=== PATIENT | female | born 1945 | race Caucasian/White ===

== ENCOUNTER 2019-11-13 09:37 | Emergency (ER) | payer MEDICARE, OTHER, SELFPAY ==
[2019-11-13 09:52] VITALS: BP 197/108; PULSE 71; RESP 18; TEMP 36.7; O2SAT 100
--- NOTE | 2019-11-13 10:02 | ED.ABDPAIN ---
HPI - Abdominal Pain General Chief Complaint: Upper Respiratory Infection Stated Complaint: Congestion History of Present Illness HPI narrative: This is a 74-year-old female comes in complaining of nausea and inability to hold anything down including her medicines.Patient Lupe here she comes in complaining nauseousness has not eaten and when she does she has dry heaves. Patient denies fever, weakness just not feeling well and coughing up clear sputum Related Data Home Medications Medication Instructions Recorded Confirmed amlodipine [Norvasc] 5 mg PO DAILY 11/13/19 11/13/19 lisinopril 20 mg PO DAILY 11/13/19 11/13/19 metoprolol succinate [Toprol XL] 100 mg PO DAILY 11/13/19 11/13/19 sertraline [Zoloft] 125 mg PO DAILY 11/13/19 11/13/19 Allergies Allergy/AdvReac Type Severity Reaction Status Date / Time No Known Allergies Allergy Mild Verified 11/13/19 11:12 Review of Systems Eyes: Comments: CONSTITUTIONAL: Denies fever, chills, or sweats. EYES: Denies visual changes, redness, or discharge. ENT: Denies rhinorrhea, positive congestion, sore throat, or otalgia. CARDIOVASCULAR:Denies chest pain, palpitations, or edema. RESPIRATORY: Positive cough or dyspnea. GASTROINTESTINAL: Denies abdominal pain, positive nausea, vomiting, or diarrhea. GENITOURINARY: Denies dysuria or hematuria. SKIN:[Denies rash or itching. MUSCULOSKELETAL:Denies back pain, joint pain, or myalgia. NEUROLOGIC: Denies headache, numbness, or weakness. PSYCHIATRIC:Denies anxiety or depression PMFSH Social History Social History Smoking status: Never smoker Alcohol intake: never Gender identity (if verbalized by the patient): Female Comments At time as signature, I have reviewed and agree with nursing past medical, social, surgical and family history. Please see nursing chart for further information. There is no relevant family history pertinent to the presenting complaint. Exam Narrative: Exam Narrative: GENERAL:Well-appearing, well-nourished, and in no acute distress. HEAD:Normocephalic, atraumatic. EYES: PERRLA and EOMI. ENT: Nares clear, no rhinorrhea or epistaxis. Mucous membranes moist. NECK: Supple. CHEST: Clear to auscultation. No respiratory distress. HEART: Regular rate and rhythm. No murmur heard. Normal peripheral pulses. ABDOMEN: Soft, nontender, nondistended, normal active bowel sounds. No anxiousness EXTREMITIES: Normal range of motion. No edema. SKIN: Warm, dry, no rash. NEURO: No focal deficits. Alert and oriented x3. Course Consultations Consultation #1: Call placed to patient's primary care provider discussed with Dr. Mercedes patient situation and condition at this time Dr. Garcia would like patient to be evaluated in the emergency room due to inability to hold anything down. Per Dr. Mariano patient's blood pressure is normally well controlled Date: 11/13/19 Time: 10:05 Vital Signs Vital signs: Vital Signs Temperature 98.1 F 11/13/19 09:52 Pulse Rate 71 11/13/19 09:52 Respiratory Rate 18 11/13/19 09:52 Blood Pressure 197/108 H 11/13/19 09:52 Pulse Oximetry 100 11/13/19 09:52 Temperature 98.1 F 11/13/19 09:52 Pulse Rate 71 11/13/19 09:52 Respiratory Rate 18 11/13/19 09:52 Blood Pressure 197/108 H 11/13/19 09:52 Pulse Oximetry 100 11/13/19 09:52 MDM - Abdominal Pain Lab Data Labs: Influenza A Screen Negative Reference Range: Negative Influenza B Screen Negative Reference Range: Negative Discharge Plan Discharge Clinical Impression: Upper respiratory infection Qualifiers: URI type: unspecified viral URI Qualified Code(s): J06.9 - Acute upper respiratory infection, unspecified BP (high blood pressure) Qualifiers: Hypertension type: unspecified Qualified Code(s): I10 - Essential (primary) hypertension Nausea & vomiting Qualifiers: Vomiting type: unspecified Vomiting Intractability: unspecified Qualified Code(s):
== END 2019-11-13 10:08 | disposition short-term general hospital (02) ==
PROVIDERS: Emergency Provider Nurse Practitioner Family; PCP Family Medicine
DX: J06.9 Acute upper respiratory infection, unspecified (principal); I10 Essential (primary) hypertension; R11.2 Nausea with vomiting, unspecified
CPT/HCPCS: 87804; 99212; G0463

== ENCOUNTER 2019-11-13 10:40 | Emergency (ER) | payer MEDICARE, OTHER, SELFPAY ==
--- NOTE | ~2019-11-13 | CT_ITS ---
EXAMINATION: CT abdomen pelvis w con DATE: 11/13/2019 14:42 INDICATION: Nausea. Hypertension. TECHNIQUE: Computed tomography (CT) of the abdomen and pelvis was performed with 100 cc Omnipaque 350 intravenous contrast. The dose-length product was 217.03 mGy-cm. Automated exposure control and iter ative reconstruction technique were employed. COMPARISON: CT dated 09/29/2006 FINDINGS: Lung bases are unremarkable. Heart size normal. No significant pleural or pericardial effus ion. No significant vascular abnormality. No lymphadenopathy. The liver, spleen, pancreas, adrenal glands are unremarkable. There are small subcentimeter hypodensi ties of the kidneys, most likely benign. Gallbladder is present. Normal appendix. Nonobstructive bowel gas pattern. Colonic diverticulosis without evidence for divert iculitis. Small fat-containing umbilical hernia. No abnormal pelvic masses or fluid collections. IMPRESSION: 1. No acute abdominal abnormality. No findings to account for patient's symptoms. Reviewed, dictated and finalized at location B. [employer] IMPRESSION: 1. No acute abdominal abnormality. No findings to account for patient's symptom s.
--- NOTE | ~2019-11-13 | XR_ITS ---
EXAMINATION: XR chest 2V DATE: 11/13/2019 11:42 INDICATION: Cough. TECHNIQUE: Frontal and lateral views of the chest were obtained. COMPARISON: None. FINDINGS: The chest demonstrates clear lungs without pneumonia, pleural effusion, or pneumothorax. Th e heart size is normal. IMPRESSION: 1. No acute cardiopulmonary disease. Reviewed, dictated and finalized at location A. FISHERMAN
[2019-11-13 11:02] VITALS: BP 196/109; PULSE 96; RESP 18; TEMP 36.7; O2SAT 100
--- NOTE | 2019-11-13 11:14 | ED.URI ---
HPI - URI/Sore Throat General Chief Complaint: Upper Respiratory Infection Stated Complaint: high bp/vomiting Time Seen by Provider: 11/13/19 11:13 Source: patient Mode of arrival: ambulatory Limitations: no limitations History of Present Illness HPI Narrative: Pt is a 74 y/o female who presents to the ED with c/o sinus drainage sinus Monday (4 days ago). Pt reports associated nausea, productive cough with phlegm, diarrhea, and decreased intake. She has not been able to take her medications because she has not been eating. Her BP has been high d/t not taking her HTN medications. Pt denies a fever, CP, SOB, myalgia, or vomiting. She states that she tried drinking some sprite and eating crackers but has been too nauseas. Pt states that she has decreased urination d/t her decreased intake. MD elicited complaint: other (sinus drainage) Onset (ago): day(s) (4) Consistency: constant Associated symptoms: cough, nausea, diarrhea and other (decreased intake) Related Data Home Medications Medication Instructions Recorded Confirmed amlodipine [Norvasc] 5 mg PO DAILY 11/13/19 11/13/19 lisinopril 20 mg PO DAILY 11/13/19 11/13/19 metoprolol succinate [Toprol XL] 100 mg PO DAILY 11/13/19 11/13/19 sertraline [Zoloft] 125 mg PO DAILY 11/13/19 11/13/19 Allergies Allergy/AdvReac Type Severity Reaction Status Date / Time No Known Allergies Allergy Mild Verified 11/13/19 11:12 Review of Systems Review of Systems: All systems reviewed & are unremarkable except as noted in HPI and below Constitutional: Constitutional: Denies body ache(s), Denies fever(s) and Reports other (decreased intake) ENT: Reports other (sinus drainage) Cardiovascular: Cardiovascular: Denies chest pain Respiratory: Respiratory: Reports cough (with phlegm) and Denies dyspnea Gastrointestinal: Gastrointestinal: Reports diarrhea, Reports nausea and Denies vomiting Genitourinary: Genitourinary: Reports other (decreased urination) [facility] Past Medical History Medical History (Updated 11/13/19 @ 15:56 by Olga Ponce MD) BP (high blood pressure) CVA (cerebral vascular accident) Depression Surgical History Surgical History (Updated 11/13/19 @ 11:52 by Anand Rojas) H/O: hysterectomy Hx of tonsillectomy Social History Social History Smoking status: Never smoker Alcohol intake: never Gender identity (if verbalized by the patient): Female Comments Pt's PCP is Dr. Bledsoe. Exam Const: General: cooperative, no acute distress and alert Nutritional Appearance: well nourished Orientation/consciousness: patient oriented x3 Limitations: no limitations HENMT: Mouth: Yes lip normal and Yes dry mucous membranes Resp: Effort & Inspection: normal respiratory effort Auscultation: clear to auscultation bilaterally Cardio: Rate: regular rate Rhythm: regular rhythm Peripheral pulses: dorsalis pedis present bilateral GI: GI Palp: Yes Soft to palpation and No Tenderness to palpation present (GI) Auscultation: normal bowel sounds Skin: General skin exam: normal color Neuro: General: patient oriented x3 Cognition (Neuro): normal cognition Speech: normal speech Extrem: General: normal to inspection, full ROM and no clubbing, cyanosis or edema Psych: Mental Status: mental status grossly normal Affect: normal affect Attitude: cooperative Course Course Emergency Course: Patient hypertensive due to inability to take her antihypertensives for the past few days. Patient is on 3 medications for her blood pressure. Patient with nausea and viral illness symptoms. No acute findings noted on evaluation in the emergency department to account for her symptoms. Patient advised is most likely a viral illness, but she should closely follow with her primary care physician if her symptoms or not improving for further evaluation to look for other causes. Patient will be prescribed nausea medication and was
--- NOTE | 2019-11-13 11:20 | ECG_ITS ---
Measurements Intervals Ramsey Rate: 67 P: 62 VA: 118 QRS: -7 QRSD: 71 T: 12 QT: 367 QTc: 387 Interpretive Statements SINUS RHYTHM WITH SHORT VA INTERVAL POSSIBLE LEFT ATRIAL ENLARGEMENT T WAVE ABNORMALITY IN ANTERIOR LEADS- CONSIDER ISCHEMIA BASELINE ARTIFACT- I, II, III, AVR ABNORMAL ECG Electronically Signed On 11-13-2019 12:13:37 TOUR BUS DRIVER/GUIDE by Braeden Herron D.O.
[2019-11-13 11:32] LABS: Basophils Percent Auto 0.2 % (0.2-1.2); Eosinophils Percent Auto 0.1 % (0-4.4); Hematocrit 40.9 % (37.0-47.0); Hemoglobin 13.5 g/dL (12.0-15.0); Immature Granulocyte Absolute 0.03 K/mm3 (0.00-0.031); Immature Granulocyte Percent A 0.3 % (0-0.5); Lymphocytes Absolute Auto 1.96 K/mm3 (0.9-3.2); Lymphocytes Percent Auto 22.6 % (18.3-44.2); Mean Corpuscular Hemoglobin 29.4 pg (26-34); Mean Corpuscular Volume 89.1 fl (80-100); Mean Platelet Volume 10.3 fl (7.4-10.4); Monocytes Absolute Auto 0.5 K/mm3 (0.1-0.6); Neutrophils Absolute Auto 6.1 K/mm3 (1.3-6.7); Neutrophils Percent Auto 70.8 % (45.5-73.1); Platelet Count Result 246 k/mm3 (150-375); Red Blood Count 4.59 M/mm3 (4.2-5.4); Red Cell Distribution Width 12.6 % (11.5-14.5); White Blood Count 8.7 K/mm3 (4.5-10.0)
[2019-11-13 11:46] LABS: Alanine Aminotransferase 14 U/L (4-35); Albumin Level 4.4 g/dL (3.5-5.1); Alkaline Phosphatase 83 U/L (38-126); Aspartate Amino Transferase 24 U/L (14-36); Bilirubin,Total 0.7 mg/dL (0.2-1.3); Blood Urea Nitrogen 13 mg/dL (7-17); Calcium 9.2 mg/dL (8.4-10.2); Carbon Dioxide 31 mmol/L (22-30); Chloride 98 mmol/L (98-107); Estimated Glomerular Filt Rate > 60; Glucose 106 mg/dL (65-105); Potassium 3.8 mmol/L (3.4-5.0); Sodium 141 mmol/L (137-145)
[2019-11-13 11:58] LABS: Troponin I < 0.012 ng/mL (0.000-0.034)
[2019-11-13 12:17] VITALS: BP 163/76; BP 184/80; BP 212/96; PULSE 63; PULSE 64; PULSE 72
[2019-11-13 13:11] VITALS: BP 193/90; PULSE 63; RESP 16; O2SAT 100
[2019-11-13 13:13] LABS: Add Urine Microscopic? YES; Appearance Urine Cloudy (Clear); Bilirubin Urine Negative (Negative); Blood Urine 2+ (Negative); Color Urine Yellow (Yellow); Glucose Urine UA Negative (Negative); Ketones Urine Trace mg/dL (Negative); Leukocyte Esterase Ur Trace LEU/UL (Negative); Mucus Urine Few /lpf; Nitrate Urine Negative (Negative); Protein Urine Negative (Negative); RBC Urine 0-2 /hpf (0-2); Specific Grav Ur 1.016 (1.001-1.035); Squamous Epithelial Cell Urine Moderate /hpf (Few); Urobilinogen Urine Negative mg/dL (<2.0)
[2019-11-13] MEDS: LACTATED RINGERS 1,000 ML 999 ML IV CONT (13:16)
[2019-11-13 14:27] VITALS: BP 196/96; PULSE 73; RESP 16; O2SAT 97
[2019-11-13] MEDS: ONDANSETRON INJ 4 MG/2 ML VIAL IV PUSH (16:06)
[2019-11-13 17:00] VITALS: BP 191/107; PULSE 63; RESP 16; O2SAT 97
== END 2019-11-13 17:01 | disposition home or self-care (01) ==
PROVIDERS: Emergency Provider Emergency Medicine; PCP Family Medicine
DX: I10 Essential (primary) hypertension (principal); F32.9 Major depressive disorder, single episode, unspecified
CPT/HCPCS: 36415; 71046; 74177; 80053; 81001; 83735; 84100; 84484; 85025; 87804; 93005; 96361; 96374; 99284; J2405; J7120; Q9967

== ENCOUNTER 2019-11-29 10:10 | Outpatient (CLI) | payer MEDICARE, OTHER, SELFPAY ==
--- NOTE | ~2019-11-29 | MM_ITS ---
EXAMINATION: MM screening [facility] BI w marty HISTORY: Screening mammogram TECHNIQUE: Craniocaudal and mediolateral oblique 3-D tomosynthesis images were obtained and synthetic 2-D images were generated. CAD analysis was submitted and interpreted. COMPARISON: Comparison to multiple prior studies sequentially, with oldest reviewed study dated 12/06. BREAST PARENCHYMAL COMPOSITION: There are scattered areas of fibroglandular density. FINDINGS: There is no evidence of suspicious mass, calcification, or architectural distortion to sugg est malignancy in either breast. There has been no suspicious interval change. IMPRESSION: 1. No mammographic evidence of malignancy. 2. Recommend routine screening mammography in one year. BI-RADS Category 1: Negative Reviewed, dictated and finalized at location A.
== END 2019-11-29 10:11 | disposition home or self-care (01) ==
LOC: ANHIMG 10:15
PROVIDERS: PCP Family Medicine; Visit Provider Obstetrics & Gynecology
DX: Z12.31 Encounter for screening mammogram for malignant neoplasm of breast (principal)
CPT/HCPCS: 77063; 77067

== ENCOUNTER 2020-04-19 08:49 | Emergency (ER) | payer MEDICARE, OTHER, SELFPAY ==
[2020-04-19 09:03] VITALS: BP 170/85; PULSE 53; RESP 18; TEMP 36.8; O2SAT 100
--- NOTE | 2020-04-19 09:18 | ED.BACK ---
HPI - Back Pain/Injury General Chief Complaint: Urogenital-Female Stated Complaint: uti Time Seen by Provider: 04/19/20 09:11 Source: patient and RN notes reviewed Mode of arrival: ambulatory Limitations: no limitations History of Present Illness HPI Narrative: Patient presents today complaining of low back pain since yesterday that has worsened since onset. It now radiates down to the posterior left popliteal fossa. Denies numbness or tingling in the legs or feet. No numbness or tingling in the genitals. Denies any loss of bowel or bladder control. Denies any recent injury or heavy lifting, but states she has been bending to pull weeds. Denies any urinary symptoms to include dysuria, hematuria, frequency, urgency, abdominal pain. She currently rates her pain 04/20 and has been using Aleve with mild relief. She is also been applying ice and heat without relief. Denies history of chronic low back pain or sciatica. MD elicited complaint: back pain Related Data Home Medications Medication Instructions Recorded Confirmed amlodipine [Norvasc] 5 mg PO DAILY 11/13/19 11/13/19 lisinopril 20 mg PO DAILY 11/13/19 11/13/19 metoprolol succinate [Toprol XL] 100 mg PO DAILY 11/13/19 11/13/19 sertraline [Zoloft] 125 mg PO DAILY 11/13/19 11/13/19 gabapentin 04/19/20 Allergies Allergy/AdvReac Type Severity Reaction Status Date / Time No Known Allergies Allergy Mild Verified 11/13/19 11:12 Review of Systems Review of Systems: Narrative: CONSTITUTIONAL: Denies body aches, fever, chills, or sweats. EYES: Denies visual changes, redness, or discharge. ENT: Denies rhinorrhea, congestion, sore throat, or otalgia. CARDIOVASCULAR: Denies chest pain, palpitations, or edema. RESPIRATORY: Denies cough or dyspnea. GASTROINTESTINAL: Denies abdominal pain, nausea, vomiting, or diarrhea. GENITOURINARY: Denies dysuria or hematuria. SKIN: Denies rash, itching, or wounds. MUSCULOSKELETAL: Denies joint pain, or myalgia. +low back pain NEUROLOGIC: Denies headache, numbness, tingling, or weakness. PSYCH: Denies depression or anxiety. PENDING SALE TO [facility] Past Medical History Medical History (Updated 04/19/20 @ 09:27 by Marbelal Boland, [facility], ) BP (high blood pressure) CVA (cerebral vascular accident) Depression Surgical History Surgical History (Updated 11/13/19 @ 11:52 by Anand Rojas) H/O: hysterectomy Hx of tonsillectomy Social History Social History Smoking status: Never smoker Alcohol intake: never Gender identity (if verbalized by the patient): Female Comments At time of signature, I have reviewed and agree with nursing past medical, surgical, social and family history unless otherwise noted. Please see nursing chart for further information. There is no relevant family history pertinent to the presenting complaint Exam Narrative: Exam Narrative: GENERAL: Well-appearing, well-nourished, and in no acute distress. HEAD: Normocephalic, atraumatic. EYES: EOMI. No redness or drainage. Conjunctivae normal. ENT: Mucous membranes pink and moist. NECK: Normal AROM. CHEST: No respiratory distress. Clear to auscultation. HEART: Regular rate and rhythm. No murmur appreciated. Normal peripheral pulses. ABDOMEN: Soft, nontender, nondistended, normal active bowel sounds. -CVAT MUSCULOSKELETAL: No bony tenderness of the spine. Left lower lumbar paraspinal muscle tenderness. Left SI joint tenderness. No right sided tenderness. Distal sensation intact. Capillary refill normal. Posterior tibial pulses normal. Saddle sensation intact. EXTREMITIES: Normal range of motion. No edema. Foot push and pulls equal and strong. SKIN: Warm, dry, no rash. Capillary refill normal. Normal skin turgor. NEURO: No focal deficits. Alert and oriented x3. Gait steady. PSYCH: Normal affect. No signs of depression or anxiety. Course Course Emergency Course: Patient symptoms are consistent with sciatica
== END 2020-04-19 09:31 | disposition home or self-care (01) ==
PROVIDERS: Emergency Provider Nurse Practitioner; PCP Family Medicine
DX: M54.32 Sciatica, left side (principal); R31.9 Hematuria, unspecified; F32.9 Major depressive disorder, single episode, unspecified; Z86.73 Personal history of transient ischemic attack (TIA), and cerebral infarction without residual deficits; I10 Essential (primary) hypertension
CPT/HCPCS: 81003; 87086; 87088; 99213; G0463

== ENCOUNTER 2020-06-20 08:46 | Outpatient (CLI) | payer MEDICARE, OTHER, SELFPAY ==
--- NOTE | ~2020-06-20 | XR_ITS ---
XR femur RT min 2V, XR hip RT min 2V 06/20/2020 09:06 INDICATION: Right leg pain PROCEDURE: 2 views right hip and 2 views right femur COMPARISON: FINDINGS: Fracture, dislocation or subluxation is not identified. The soft tissues appear within norm al limits. No foreign bodies are identified. IMPRESSION: 1: NO ACUTE BONE OR JOINT ABNORMALITY IDENTIFIED. Reviewed, dictated and finalized at location A. IMPRESSION: 1: NO ACUTE BONE OR JOINT ABNORMALITY IDENTIFIED.
--- NOTE | ~2020-06-20 | XR_ITS ---
XR lumbar spine 2-3V 06/20/2020 09:06 Indication: Low back pain. Sciatica. Procedure: 3 views lumbar spine Comparison: 09/29/2006 Findings: There is disc narrowing at L2-3, L3-4, L4-5 and L5-S1. There is moderate multilevel facet h ypertrophy with grade 1 degenerative spondylolisthesis at L3-4, L4-5 and L5-S1. There is dextroscolio sis. No acute fracture or traumatic malalignment. Sacral foramen are symmetric. Impression: 1: Progression of severe lumbar spondylosis as prior examination with dextroscoliosis. Reviewed, dictated and finalized at location A. Impression: 1: Progression of severe lumbar spondylosis as prior examination with dextrosco liosis.
== END 2020-06-20 08:47 | disposition home or self-care (01) ==
LOC: ANHIMG 08:51
PROVIDERS: PCP Family Medicine; Visit Provider Nurse Practitioner Family
DX: M54.41 Lumbago with sciatica, right side (principal); M47.26 Other spondylosis with radiculopathy, lumbar region
CPT/HCPCS: 72100; 73502; 73552

== ENCOUNTER 2020-06-26 07:43 | Outpatient (CLI) | payer MEDICARE, OTHER, SELFPAY ==
--- NOTE | ~2020-06-26 | DEXA_ITS ---
Bone Density Report Name: Katerina Andrade Age: 75 Sex: Female Ethnicity: White Date of : 1945 Indication: postmenopausal; height loss; prior fracture; hysterectomy; Referring Provider: RAHGAV, MARK [place] Study: Bone densitometry was performed. Exam Date: June 26, 2020 Accession number: [id number] Bone Density: Region BMD T-score Z-score Classification AP Spine (L1-L4) 1.109 0.6 2.9 Normal Femoral Neck (Left) 0.727 -1.1 0.9 Osteopenia Total Hip (Left) 0.886 -0.5 1.2 Normal Total Hip Bilateral Avg 0.875 -0.6 1.1 Normal Femoral Neck (Right) 0.763 -0.8 1.2 Normal Total Hip (Right) 0.863 -0.6 1.0 Normal World Health Organization criteria for BMD impression classify patients as: Normal (T-score at or above -1.0), Osteopenia (T-score between -1.0 and -2.5), or Osteoporosis (T-score at or below -2.5). 10-year Fracture Risk(1): Major Osteoporotic Fracture 15% Hip Fracture 2.0% Reported Risk Factors: [place] (), Neck BMD=0.727, BMI=24.2, previous fracture (1) FRAX(R) Version 3.08. Fracture probability calculated for an untreated patient. Fracture probability may be lower if the patient has received treatment. Clinical Information Provided by Patient: Has had a low trauma fracture Has the following medical conditions: Hysterectomy Patient maximum height was 57 Menopause Age: 54 Drinks caffeinated beverages Onset of menses at age 15 Number of children 3 Impression: The patient has low bone mass, based on the Left Femoral Neck T-score. The patient has an estimated ten-year risk of hip fracture of 2% and an estimated ten-year risk of major fracture of 15%, based on the WHO FRAX algorithm. The patient has risk factors, including: previous fracture. Discussion: BONE DENSITY IS LOW AT ONE OR MORE SKELETAL SITES. This patient's lowest T-score is low at one or more skeletal sites. It meets the World Health Organization's (WHO) criteria for ?low bone mass? (T-score between -1.0 and -2.5). The patient's 10-year risk of fracture as calculated by FRAX is less than the threshold where pharmacological therapy is recommended by the National Osteoporosis Foundation (NOF). However, all treatment decisions require clinical judgment and consideration of individual patient factors, including patient preferences, comorbidities, previous drug use, risk factors not captured in the FRAX model (e.g., frailty, falls, vitamin D deficiency, increased bone turnover, interval significant decline in bone density) and possible under or overestimation of fracture risk by FRAX. The patient should follow a healthful lifestyle (good nutrition with adequate calcium and vitamin D, and appropriate weight-bearing exercise). Follow-Up: Consider repeating this study in 2 to 3 years to reassess this patient's status, or sooner if
== END 2020-06-26 07:44 | disposition home or self-care (01) ==
LOC: ANHIMG 07:47
PROVIDERS: PCP Family Medicine; Visit Provider Family Medicine
DX: Z78.0 Asymptomatic menopausal state (principal)
CPT/HCPCS: 77080

== ENCOUNTER 2020-07-09 10:10 | Outpatient (CLI) | payer MEDICARE, OTHER, SELFPAY ==
--- NOTE | ~2020-07-09 | MR_ITS ---
EXAMINATION: MR lumbar spine wo con DATE: 07/09/2020 12:34 INDICATION: Low back pain. TECHNIQUE: Magnetic resonance imaging (MRI) of the lumbar spine was performed without intravenous con trast. Sequences included sagittal T2-weighted FSE, sagittal T2-weighted FS FSE, sagittal T1-weighted FSE, and axial T2-weighted FSE. COMPARISON: Lumbar spine radiographs 06/20/2020 FINDINGS: There is 5 degrees dextrocurvature of lumbar spine. There is 4 mm retrolisthesis of L2 on L 3, 3 mm anterolisthesis of L3 on L4, and 4 mm anterolisthesis of L4 on L5 and L5 on S1. There is mode rately decreased disc height at L2-L3 and L3-L4 and severely decreased disc at L4-L5 and L5-S1 with e ndplate remodeling. The distal spinal cord signal intensity is normal. The conus medullaris is at L1. The following disc levels are specifically discussed: L1-L2: The disc is bulging and has an annular fissure. There is no facet joint osteoarthritis. There is mild bilateral neural foraminal stenosis. There is mild central canal stenosis. L2-L3: The disc is bulging and has an annular fissure. There is mild bilateral facet joint osteoarthr itis. There is mild right and moderate left neural foraminal stenosis. There is mild central canal st enosis. L3-L4: The disc is bulging. There is severe bilateral facet joint osteoarthritis. There is mild bilat eral neural foraminal stenosis. There is mild central canal stenosis. L4-L5: The disc is bulging and has an annular fissure. There is severe bilateral facet joint osteoart hritis. There is moderate right and mild left neural foraminal stenosis. There is moderate central ca nal stenosis. L5-S1: The disc is bulging and has an annular fissure. There is severe bilateral facet joint osteoart hritis. There is mild bilateral neural foraminal stenosis. There is mild central canal stenosis. IMPRESSION: 1. Severe lumbar spondylosis. Reviewed, dictated and finalized at location A.
== END 2020-07-09 10:11 | disposition home or self-care (01) ==
PROVIDERS: PCP Family Medicine; Visit Provider Orthopaedic Surgery
DX: M47.896 Other spondylosis, lumbar region (principal)
CPT/HCPCS: 72148

== ENCOUNTER 2021-01-04 14:43 | Outpatient (CLI) | payer MEDICARE, OTHER, SELFPAY ==
--- NOTE | ~2021-01-04 | MM_ITS ---
EXAMINATION: MM screening fernanda BI w marty HISTORY: Screening mammogram TECHNIQUE: Craniocaudal and mediolateral oblique 3-D tomosynthesis images were obtained and synthetic 2-D images were generated. CAD analysis was submitted and interpreted. COMPARISON: 11/29/2019, 10/17/2018, 10/12/2017 bilateral digital screening mammogram examinations BREAST PARENCHYMAL COMPOSITION: There are scattered areas of fibroglandular density. FINDINGS: There is no evidence of suspicious mass, calcification, or architectural distortion to sugg est malignancy in either breast. There has been no suspicious interval change. IMPRESSION: 1. No mammographic evidence of malignancy. 2. Recommend routine screening mammography in one year. BI-RADS Category 1: Negative Reviewed, dictated and finalized at location A.
== END 2021-01-04 14:44 | disposition home or self-care (01) ==
LOC: ANHIMG 14:44
PROVIDERS: PCP Family Medicine; Visit Provider Obstetrics & Gynecology
DX: Z12.31 Encounter for screening mammogram for malignant neoplasm of breast (principal)
CPT/HCPCS: 77063; 77067

== ENCOUNTER → 2021-05-25 08:59 | Outpatient (CLI) | payer MEDICARE, OTHER, SELFPAY ==
[2021-05-25 20:46] LABS: SARS-CoV-2 RNA PCR Negative
== END ==
PROVIDERS: PCP Family Medicine; Visit Provider Family Medicine
DX: Z20.822 Contact with and (suspected) exposure to COVID-19 (principal)
CPT/HCPCS: C9803; U0003; U0005

== ENCOUNTER 2021-08-19 11:55 | Emergency (ER) | payer MEDICARE, OTHER, SELFPAY ==
[2021-08-19 12:05] VITALS: BP 149/85; PULSE 87; RESP 16; TEMP 37.2; O2SAT 99
--- NOTE | 2021-08-19 12:30 | ED.SKABFB ---
HPI - Skin/Abscess/Foreign Bdy General Chief complaint: Skin/Abscess/Foreign Body Stated complaint: left thumb infection Source: patient and RN notes reviewed Mode of arrival: ambulatory History of Present Illness HPI narrative: This is a 76-year-old female presented to urgent care with complaints of left redness, swelling, tenderness at the nail bed that she has had for approximately 1 week. Patient notes that she purchased [id number] ingrown nail medication with no relief. She does note that she has had white drainage from the site. The patient denies SOB, CP, palpitation, extremity numbness, neurovascular deficiencies, decrease in sensation, lightheadedness, dizziness, constipation, diarrhea, chills, or fever. Related Data Home Medications Medication Instructions Recorded Confirmed amlodipine [Norvasc] 5 mg PO DAILY 11/13/19 11/13/19 lisinopril 20 mg PO DAILY 11/13/19 11/13/19 metoprolol succinate [Toprol XL] 100 mg PO DAILY 11/13/19 11/13/19 gabapentin 04/19/20 escitalopram oxalate mg 08/19/21 loratadine mg 08/19/21 Allergies Allergy/AdvReac Type Severity Reaction Status Date / Time No Known Allergies Allergy Mild Verified 11/13/19 11:12 Review of Systems Review of Systems: A 14 organ system Review of Systems was performed and pertinent positives included in the HPI, otherwise remaining ROS is negative. COUNTS INCLUDE 234 BEDS AT THE [facility] Past Medical History Medical History BP (high blood pressure) CVA (cerebral vascular accident) Depression Surgical History Surgical History H/O: hysterectomy Hx of tonsillectomy Family History Family History (Updated 08/19/21 @ 12:30 by SAIDA Dubose) Other Family history non-contributory Social History Social History Smoking status: Never smoker Alcohol intake: never Gender identity (if verbalized by the patient): Female Exam Narrative: GENERAL: This is a well-nourished, well-developed patient, in no apparent distress. HEAD: normocephalic, atraumatic. EYES: PERRL. Sclera clear/white. Vision is grossly intact. EARS: External ears normal, auditory canals clear and without drainage, TMs normal without perforation. Hearing grossly intact. NOSE: External nose normal with no obvious nasal discharge, nares without redness, no rhinorrhea. THROAT: Mucous membranes moist, posterior pharynx clear. NECK: Neck supple, non-tender without lymphadenopathy, masses or thyromegaly. CARDIOVASCULAR: Regular rate and rhythm without murmurs, gallops, or rubs. RESPIRATORY: Clear to auscultation. Breath sounds equal bilaterally. No wheezes, rales, or rhonchi. GASTROINTESTINAL: Abdomen soft, non-tender, nondistended. Bowel sounds are active. No hepato-splenomegaly, or palpable masses. No guarding. SKIN: Left thumb with edema in erythematous, tender to touch NEURO: awake, alert, and oriented to person, place and time. There were no obvious focal neurologic abnormalities. Steady gait EXTREMITIES: Normal range of motion. No edema. No calf tenderness. Negative Homans sign bilaterally. BACK: Nontender without deformity or crepitance. No flank tenderness. Course Course Emergency Course: Patient was discharged home with doxycycline twice daily x7 days Vital Signs Vital signs: Vital Signs Temperature 98.9 F 08/19/21 12:05 Pulse Rate 87 08/19/21 12:05 Respiratory Rate 16 08/19/21 12:05 Blood Pressure 149/85 H 08/19/21 12:05 Pulse Oximetry 99 08/19/21 12:05 Temperature 98.9 F 08/19/21 12:05 Pulse Rate 87 08/19/21 12:05 Respiratory Rate 16 08/19/21 12:05 Blood Pressure 149/85 H 08/19/21 12:05 Pulse Oximetry 99 08/19/21 12:05 MDM - Skin/Abscess/Foreign Bdy Differential Diagnosis Differential diagnosis: Likely abscess of skin or subcutaneous tissue, cellulitis, contact dermatitis and ot
== END 2021-08-19 12:31 | disposition home or self-care (01) ==
PROVIDERS: Emergency Provider Nurse Practitioner; PCP Family Medicine
DX: L03.012 Cellulitis of left finger (principal); I10 Essential (primary) hypertension; Z86.73 Personal history of transient ischemic attack (TIA), and cerebral infarction without residual deficits
CPT/HCPCS: 99213; G0463

== ENCOUNTER 2022-01-20 09:58 | Outpatient (CLI) | payer MEDICARE, OTHER, SELFPAY ==
--- NOTE | ~2022-01-20 | MM_ITS ---
EXAMINATION: MM screening fernanda BI w marty HISTORY: Screening TECHNIQUE: Craniocaudal and mediolateral oblique 3-D tomosynthesis images were obtained and synthetic 2-D images were generated. CAD analysis was submitted and interpreted. COMPARISON: Comparison to multiple prior studies sequentially, with oldest reviewed study dated 09/2017. BREAST PARENCHYMAL COMPOSITION: Breast composed of scattered areas of fibroglandular density FINDINGS: There is no evidence of suspicious mass, calcification, or architectural distortion to sugg est malignancy in either breast. There has been no suspicious interval change. IMPRESSION: 1. No mammographic evidence of malignancy. 2. Recommend routine screening mammography in one year. BI-RADS Category 1: Negative Reviewed, dictated and finalized at location A.
== END 2022-01-20 09:59 | disposition home or self-care (01) ==
PROVIDERS: PCP Family Medicine; Visit Provider Obstetrics & Gynecology
DX: Z12.31 Encounter for screening mammogram for malignant neoplasm of breast (principal)
CPT/HCPCS: 77063; 77067

== ENCOUNTER 2022-02-06 10:38 | Emergency (ER) | payer MEDICARE, OTHER, SELFPAY ==
[2022-02-06 10:55] VITALS: BP 113/68; PULSE 62; RESP 18; TEMP 36.7; O2SAT 98
--- NOTE | 2022-02-06 10:57 | ED.FEMALEGU ---
HPI - Female Genitourinary General Chief complaint: Urogenital-Female Stated complaint: UTI Time Seen by Provider: 02/06/22 10:57 Source: patient Mode of arrival: ambulatory Limitations: no limitations History of Present Illness HPI Narrative: 76-year-old female presents with urinary frequency, urgency, dysuria for 3 days. Denies fever chills. Denies flank pain. Reports some discomfort in abdomen. Symptoms similar to last UTI. All systems reviewed and negative except as noted above. Related Data Home Medications Medication Instructions Recorded Confirmed amlodipine 5 mg tablet (Norvasc) 5 mg PO DAILY 11/13/19 02/06/22 lisinopril 20 mg tablet 20 mg PO DAILY 11/13/19 02/06/22 metoprolol succinate 100 mg 100 mg PO DAILY 11/13/19 02/06/22 tablet,extended release 24 hr (Toprol XL) gabapentin 300 mg capsule 300 mg PO DIRECTED 04/19/20 02/06/22 escitalopram oxalate 20 mg tablet 20 mg PO DAILY 08/19/21 02/06/22 loratadine 10 mg tablet 10 mg PO DAILY 08/19/21 02/06/22 Allergies Allergy/AdvReac Type Severity Reaction Status Date / Time No Known Allergies Allergy Mild Verified 02/06/22 10:49 Review of Systems Review of Systems: CONSTITUTIONAL: Denies fever, chills, or sweats. EYES: Denies visual changes, redness, or discharge. ENT: Denies rhinorrhea, congestion, sore throat, or otalgia. CARDIOVASCULAR: Denies chest pain, palpitations, or edema. RESPIRATORY: Denies cough or dyspnea. GASTROINTESTINAL: Denies abdominal pain, nausea, vomiting, or diarrhea. GENITOURINARY: Reports dysuria urgency, frequency. Denies hematuria. SKIN: Denies rash or itching. MUSCULOSKELETAL: Denies back pain, joint pain, or myalgia. NEUROLOGIC: Denies headache, numbness, or weakness. PSYCHIATRIC: Denies anxiety or depression. All other systems reviewed are negative, except as documented in HPI. [facility] Past Medical History Medical History BP (high blood pressure) CVA (cerebral vascular accident) Depression Surgical History Surgical History H/O: hysterectomy Hx of tonsillectomy Family History Family History (Updated 08/19/21 @ 12:30 by SAIDA Dubose) Other Family history non-contributory Social History Social History Smoking status: Never smoker Alcohol intake: never Gender identity (if verbalized by the patient): Female Comments At time of signature, agree with nursing past medical, surgical, social and family history. There is no relevant family history pertinent to the presenting complaint. Exam Narrative: GENERAL: This is a well-nourished, well-developed patient, in no apparent distress. HEAD: normocephalic, atraumatic. EYES: PERRL. Sclera clear/white. Vision is grossly intact. EARS: External ears normal NOSE: External nose normal NECK: Neck supple, non-tender without lymphadenopathy, masses or thyromegaly. CARDIOVASCULAR: Regular rate and rhythm without murmurs, gallops, or rubs. RESPIRATORY: Clear to auscultation. Breath sounds equal bilaterally. No wheezes, rales, or rhonchi. GASTROINTESTINAL: Abdomen soft, non-tender, nondistended. Bowel sounds are active. No hepato-splenomegaly, or palpable masses. No guarding. SKIN: warm, Dry, intact with no suspicious lesions or rash, good texture and turgor. NEURO: awake, alert, and oriented to person, place and time. There were no obvious focal neurologic abnormalities. EXTREMITIES: Normal range of motion to all extremities. BACK: No CVA tenderness. Course Course Level of Care: Express Care Visit Vital Signs Vital signs: Vital Signs Temperature 36.7 C 02/06/22 10:55 Pulse Rate 62 02/06/22 10:55 Respiratory Rate 18 02/06/22 10:55 Blood Pressure 113/68 02/06/22 10:55 Pulse Oximetry 98 02/06/22 10:55 Oxygen Delivery Room Air 02/06/22 10:55 Temperature
== END 2022-02-06 11:22 | disposition home or self-care (01) ==
PROVIDERS: Emergency Provider Nurse Practitioner Family; PCP Family Medicine
DX: N39.0 Urinary tract infection, site not specified (principal); I10 Essential (primary) hypertension; F32.A Depression, unspecified; Z86.73 Personal history of transient ischemic attack (TIA), and cerebral infarction without residual deficits
CPT/HCPCS: 81003; 87086; 87088; 99213; G0463

== ENCOUNTER 2022-03-04 19:37 | Emergency (ER) | payer MEDICARE, OTHER, SELFPAY ==
--- NOTE | ~2022-03-04 | CT_ITS ---
EXAMINATION: CT abdomen pelvis w con INDICATION: Nausea, vomiting, diarrhea TECHNIQUE: Computed tomographic images of the abdomen and pelvis were obtained after the administrati on of 100 cc of Omnipaque 300 intravenous contrast. The dose-length product (DLP) was 320.31 mGy-cm. Automated exposure control and iterative reconstruction technique were employed. COMPARISON: 11/13/2019 FINDINGS: Minimal dependent atelectasis is present in the lung bases. The heart size is normal. The l iver, spleen, pancreas, gallbladder, and adrenal glands are normal. Cysts of the left kidney measure up to 8 mm. There is scarring in the upper pole of the right kidney. No pathologically enlarged abdom inal or pelvic lymph nodes are identified. There is no free intraperitoneal gas or evidence of bowel obstruction. The appendix is normal. Colonic diverticulosis is present without evidence of diverticul itis. There is an umbilical hernia containing fat. There is severe lumbar spondylosis. IMPRESSION: 1. No CT correlate for the patient's symptoms. Reviewed, dictated and finalized at location F.
[2022-03-04 20:09] VITALS: BP 158/89; PULSE 58; RESP 18; TEMP 36.3; O2SAT 99
--- NOTE | 2022-03-04 20:25 | ED.NAVMDI ---
HPI - Nausea/Vomiting/Diarrhea General Chief complaint: Nausea/Vomiting/Diarrhea Stated complaint: vomiting and diarrhea Time Seen by Provider: 03/04/22 20:16 History of Present Illness HPI Narrative: Patient is a 76-year-old female here for evaluation of nausea and vomiting over the past month. Patient states that her symptoms began after she started antibiotics for UTI. States that she only took 2 days of keflex before she started to feel sick. This was then switched to cipro, but she continued to feel sick throughout the month and only took two pills of cipro. Every day she had about 4-5 episodes of vomiting nonbloody/nonbilious emesis after every p.o. trial. In addition she has had about 5 episodes of loose stools per day, that has now progressed to clear diarrhea. Does note some crampy abdominal pain. Denies fevers, chills. Does note her urinary symptoms have resolved, and of note the culture obtained has no growth to date. Related Data Home Medications Medication Instructions Recorded Confirmed amlodipine 5 mg tablet (Norvasc) 5 mg PO DAILY 11/13/19 02/06/22 lisinopril 20 mg tablet 20 mg PO DAILY 11/13/19 02/06/22 metoprolol succinate 100 mg 100 mg PO DAILY 11/13/19 02/06/22 tablet,extended release 24 hr (Toprol XL) gabapentin 300 mg capsule 300 mg PO DIRECTED 04/19/20 02/06/22 escitalopram oxalate 20 mg tablet 20 mg PO DAILY 08/19/21 02/06/22 loratadine 10 mg tablet 10 mg PO DAILY 08/19/21 02/06/22 Allergies Allergy/AdvReac Type Severity Reaction Status Date / Time No Known Allergies Allergy Mild Verified 03/04/22 20:15 Review of Systems Review of Systems: Gen: Denies fevers or chills Eyes: Denies eye pain or visual change ENT: Denies congestion Respiratory: Denies shortness of breath or cough CV: Denies chest pain or palpitations GI: Reports nausea, vomiting or diarrhea. Denies abdominal pain : denies burning, urgency, frequency or hematuria Musculoskeletal: Denies back pain or muscle pain Neuro: Denies numbness, tingling, weakness or focal weakness Skin: Denies rash Except as documented, all other systems reviewed and negative PMFSH Past Medical History Medical History BP (high blood pressure) CVA (cerebral vascular accident) Depression Surgical History Surgical History H/O: hysterectomy Hx of tonsillectomy Family History Family History (Updated 08/19/21 @ 12:30 by SAIDA Dubose) Other Family history non-contributory Social History Social History Smoking status: Never smoker Alcohol intake: never Gender identity (if verbalized by the patient): Female Exam Narrative: APPEARANCE: Well appearing, no pain in distress, well-nourished. Head: Normocephalic and atraumatic. EYES: PERRLA/EOMI, conjunctivae clear NOSE: No nasal drainage EARS: External ear normal in appearance THROAT: Oropharynx is clear. Mucous membranes are moist. NECK: Supple. No adenopathy, no masses. RESPIRATORY: Airway patent, respirations nonlabored. Clear to auscultation bilaterally, no rales, rhonchi, wheezing. CARDIOVASCULAR: Regular rate and rhythm without murmurs, rubs, or gallops. ABDOMINAL: Tender in epigastrium. Normoactive bowel sounds. Soft, nondistended. No rebound tenderness or guarding. MUSCULOSKELETAL: Extremities are warm and well-perfused. Moves all extremities well. No edema. NEURO: Normal speech. No focal neurologic deficits. SKIN: Skin is warm and dry. No rashes. PSYCHIATRIC: Normal affect/mood. Course Vital Signs Vital signs: Vital Signs Temperature 97.4 F L 03/04/22 20:09 Pulse Rate 58 L 03/04/22 20:09 Respiratory Rate 18 03/04/22 20:09 Blood Pressure 158/89 H 03/04/22 20:09 Pulse Oximetry 99 03/04/22 20:09 Oxygen Delivery Room Air 03/04/22 20:09 Temperature 97.4
[2022-03-04 20:28] VITALS: BP 175/91; PULSE 56; RESP 13; O2SAT 99
[2022-03-04 20:36] LABS: Basophils Percent Auto 0.2 % (0.2-1.2); Eosinophils Absolute Auto 0.1 K/mm3 (0-0.3); Eosinophils Percent Auto 0.7 % (0-4.4); Hematocrit 40.8 % (37.0-47.0); Hemoglobin 13.2 g/dL (12.0-15.0); Immature Granulocyte Absolute 0.04 K/mm3 (0.00-0.031); Immature Granulocyte Percent A 0.5 % (0-0.5); Lymphocytes Absolute Auto 1.89 K/mm3 (0.9-3.2); Mean Corpuscular HGB Conc 32.4 g/dl (32-36); Mean Corpuscular Hemoglobin 29.8 pg (26-34); Mean Corpuscular Volume 92.1 fl (80-100); Mean Platelet Volume 10.4 fl (7.4-10.4); Monocytes Absolute Auto 0.7 K/mm3 (0.1-0.6); Monocytes Percent Auto 7.7 % (2.6-8.5); Neutrophils Absolute Auto 5.9 K/mm3 (1.3-6.7); Neutrophils Percent Auto 68.9 % (45.5-73.1); Platelet Count Result 249 k/mm3 (150-375); Red Blood Count 4.43 M/mm3 (4.2-5.4); Red Cell Distribution Width 13.2 % (11.5-14.5); White Blood Count 8.6 K/mm3 (4.5-10.0)
[2022-03-04] MEDS: ONDANSETRON INJ 4 MG/2 ML VIAL IV PUSH (20:41)
[2022-03-04] MEDS: SODIUM CHLORIDE 0.9% IV 1,000 ML 999 ML IV CONT (20:41)
[2022-03-04 20:55] LABS: Alanine Aminotransferase 11 U/L (6-35); Albumin Level 4.1 g/dL (3.5-5.1); Alkaline Phosphatase 82 U/L (38-126); Anion Gap 5 mmol/L (8-16); Aspartate Amino Transferase 22 U/L (14-36); Bilirubin,Total 0.5 mg/dL (0.2-1.3); Blood Urea Nitrogen 7 mg/dL (7-17); Carbon Dioxide 30 mmol/L (22-30); Chloride 107 mmol/L (98-107); Estimated Glomerular Filt Rate > 60; Glucose 103 mg/dL (65-110); Lipase 68 U/L (23-300); Potassium 3.9 mmol/L (3.4-5.0); Sodium 142 mmol/L (137-145)
[2022-03-04 21:15] LABS: Magnesium 1.9 mg/dL (1.6-2.3); Phosphorus 3.5 mg/dL (2.5-4.5)
[2022-03-04 21:42] LABS: Appearance Urine Clear (Clear); Bilirubin Urine Negative (Negative); Blood Urine 1+ (Negative); Color Urine Yellow (Yellow); Glucose Urine UA Negative (Negative); Ketones Urine Negative (Negative); Leukocyte Esterase Ur Trace LEU/UL (Negative); Nitrate Urine Negative (Negative); Protein Urine Negative (Negative); Urobilinogen Urine 0.2 mg/dL (<2.0); pH Urine 5.5 (5.0-9.0)
[2022-03-04 21:46] VITALS: BP 161/96; PULSE 65; RESP 17; O2SAT 100
[2022-03-04 21:49] LABS: Mucus Urine Rare /lpf; RBC Urine 0-2 /hpf (0-2); Squamous Epithelial Cell Urine Occasional /hpf (Few); WBC Urine 0-3 /hpf
[2022-03-04 21:50] LABS: Add Urine Microscopic? YES
[2022-03-04] MEDS: diphenhydrAMINE HCl INJ 50 MG/ML VIAL 12.5 MG IV PUSH (22:47)
[2022-03-04] MEDS: METOCLOPRAMIDE HCL INJ 10 MG/2 ML VIAL IV PUSH (22:50)
[2022-03-05 00:09] VITALS: BP 163/91; PULSE 61; RESP 14; O2SAT 96
== END 2022-03-05 00:08 | disposition home or self-care (01) ==
PROVIDERS: Physician Assistant; Emergency Provider Emergency Medicine; PCP Family Medicine
DX: R11.2 Nausea with vomiting, unspecified (principal); T36.8X5A Adverse effect of other systemic antibiotics, initial encounter; I10 Essential (primary) hypertension; Z86.73 Personal history of transient ischemic attack (TIA), and cerebral infarction without residual deficits; F32.A Depression, unspecified
CPT/HCPCS: 36415; 74177; 80053; 81001; 83690; 83735; 84100; 85025; 96361; 96374; 96375; 99284; J1200; J2405; J2765; J7030; Q9967

== ENCOUNTER 2023-03-02 08:30 | Outpatient (CLI) | payer MEDICARE, OTHER, SELFPAY ==
--- NOTE | ~2023-03-02 | MM_ITS ---
EXAMINATION: MM screening fernanda BI w marty HISTORY: Screening mammogram TECHNIQUE: Craniocaudal and mediolateral oblique 3-D tomosynthesis images were obtained and synthetic 2-D images were generated. CAD analysis was submitted and interpreted. COMPARISON: 01/20/2022, 01/04/2021, 11/29/2019 bilateral screening mammogram examinations BREAST PARENCHYMAL COMPOSITION: There are scattered areas of fibroglandular density. FINDINGS: There is no evidence of suspicious mass, calcification, or architectural distortion to sugg est malignancy in either breast. There has been no suspicious interval change. IMPRESSION: 1. No mammographic evidence of malignancy. 2. Recommend routine screening mammography in one year. BI-RADS Category 1: Negative Reviewed, dictated and finalized at location A.
== END 2023-03-02 08:31 | disposition home or self-care (01) ==
LOC: ANHIMG 08:32
PROVIDERS: PCP Family Medicine; Visit Provider Obstetrics & Gynecology
DX: Z12.31 Encounter for screening mammogram for malignant neoplasm of breast (principal)
CPT/HCPCS: 77063; 77067

== ENCOUNTER 2023-07-06 07:07 | Emergency (ER) | payer MEDICARE, OTHER, SELFPAY ==
--- NOTE | ~2023-07-06 | CT_ITS ---
EXAMINATION: CT abdomen pelvis w con DATE: 07/06/2023 09:25 INDICATION: Nausea, vomiting, and diarrhea. Leukocytosis. TECHNIQUE: Computed tomography (CT) of the abdomen and pelvis was performed with 100 mL Omnipaque 350 intravenous contrast. Automated exposure control and iterative reconstruction technique were employe d. The dose-length product was 339.83 mGy-cm. COMPARISON: CT abdomen and pelvis 03/04/2022 FINDINGS: The visualized portions of the lung bases demonstrate mild atelectasis. No pleural effusion . Cardiomegaly is noted. No pericardial effusion. There is a small sliding hiatal hernia. The liver a nd spleen are normal. There is a gallstone in the gallbladder, which is normal in size. The pancreas and adrenal glands are normal. There is cortical thinning of right kidney. There are cysts in left ki dney measuring up to 8 mm. There is diverticulosis of the colon without evidence of diverticulitis. T he appendix is normal. There are no dilated loops of bowel. There are no pathologically enlarged lymp h nodes. There is no free intraperitoneal fluid. There is lumbar dextroscoliosis and severe spondylos is. There is thoracic levoscoliosis and severe spondylosis. IMPRESSION: 1. Small sliding hiatal hernia. Reviewed, dictated and finalized at location E.
[2023-07-06 07:09] VITALS: BP 170/81; PULSE 65; RESP 16; TEMP 36.7; O2SAT 100
--- NOTE | 2023-07-06 07:19 | ED.NAVMDI ---
HPI - Nausea/Vomiting/Diarrhea General Chief complaint: Nausea/Vomiting/Diarrhea Stated complaint: decreased PO intake, ?fever Time Seen by Provider: 07/06/23 07:15 History of Present Illness HPI Narrative: Patient states that after dinner last night she started feeling nauseous, and gagging/vomiting, and overall feels sick to her stomach. She also had several bloody bowel movements. Unsure if it was something she ate, and this morning was still not feeling well so came into the hospital. Has not had any abdominal pain, or dysuria. Unsure if she has had some low-grade fevers, no cough or runny nose Related Data Home Medications Medication Instructions Recorded Confirmed amlodipine 5 mg tablet (Norvasc) 5 mg PO DAILY 11/13/19 01/02/23 lisinopril 20 mg tablet 20 mg PO DAILY 11/13/19 01/02/23 metoprolol succinate 100 mg 100 mg PO DAILY 11/13/19 01/02/23 tablet,extended release 24 hr (Toprol XL) gabapentin 300 mg capsule 300 mg PO DIRECTED 04/19/20 01/02/23 loratadine 10 mg tablet 10 mg PO DAILY 08/19/21 01/02/23 Allergies Allergy/AdvReac Type Severity Reaction Status Date / Time No Known Allergies Allergy Mild Verified 07/06/23 07:33 Review of Systems Review of Systems: CONST: No fever. HEENT: No sore throat C/V: No chest pain RESP: No cough GI: Reports nausea, vomiting, diarrhea : No dysuria. M/S: No joint pain. SKIN: No rash. NEURO: [No headache or focal numbness or weakness] PSYCH: [No depression] [facility] Past Medical History Medical History (Updated 07/06/23 @ 09:47 by Elisa Chilel MD) Anxiety Arthritis Basal cell carcinoma forehead BP (high blood pressure) Carpal tunnel syndrome on both sides (~2008) CVA (cerebral vascular accident) Depression High cholesterol MVP (mitral valve prolapse) Osteoporosis Overactive bladder Restless leg syndrome Screening mammogram, encounter for Surgical History Surgical History H/O left breast biopsy (07/07/04) left breast biopsy- benign x 2 H/O tubal ligation H/O: hysterectomy (~09/11/02) TVH BSO, bladder suspension - uterine fibroids History of gynecological procedure (~1976) vaginal cyst History of hysteroscopy (~1972) hscope D&C vaginal bleeding Hx of tonsillectomy (~1952) Family History Family History Father Heart disease Hypertension Malignant neoplasm of prostate Mother Breast cancer Other Family history non-contributory Social History Social History (Updated 01/02/23 @ 14:15 by MYESHA Capellan) Smoking status: Never smoker Alcohol intake: never Substance use: never Substance use type: does not use Living arrangements: other Additional living arrangements comments: Occupation/Education: retired Gender identity (if verbalized by the patient): Female Sexual Orientation (if Verbalized by the Patient): Straight or Heterosexual Exam Narrative: EXAMINATION OF ORGAN SYSTEMS/BODY AREAS: Constitutional: Vital signs per nursing GENERAL:[No acute distress, non-toxic appearing.] HEAD: Normal with no signs of head trauma. EYES: EOMI, conjunctiva normal ENT: Hearing grossly intact LUNGS: Nonlabored breathing. HEART: [Regular rate and rhythm] ABD: [Soft], [nontender to palpation] EXT: Normal range of motion SKIN: [No rashes or lesions.] NEURO: [Alert and oriented x 3. No gross focal sensory or strength deficits.] PSYCH: Normal affect Course Vital Signs Vital signs: Vital Signs Temperature 98.1 F 07/06/23 07:09 Pulse Rate 65 07/06/23 07:09 Respiratory Rate 16 07/06/23 07:09 Blood Pressure 170/81 H 07/06/23 07:09 Pulse Oximetry 100 07/06/23 07:09 Oxygen Delivery Room Air 07/06/23 07:09 Temperature 98.1 F 07/06/23 07:09 Pulse Rate 68 07/06/23 09:01 Respiratory Rate 18 07/06/23 09:01 Blood Pressure 144/80 H 07/06/23 09:01 Pulse Oxi
[2023-07-06] MEDS: ONDANSETRON INJ 4 MG/2 ML VIAL IV PUSH (07:33)
[2023-07-06] MEDS: SODIUM CHLORIDE 0.9% IV 1,000 ML 999 ML IV CONT (07:34)
[2023-07-06 07:35] VITALS: BP 155/73; PULSE 59; RESP 18; O2SAT 96
[2023-07-06 07:45] LABS: Basophils Absolute Auto 0.1 K/mm3 (0.0-0.1); Basophils Percent Auto 0.4 % (0.2-1.2); Eosinophils Absolute Auto 0.1 K/mm3 (0-0.3); Eosinophils Percent Auto 0.4 % (0-4.4); Hematocrit 42.7 % (37.0-47.0); Hemoglobin 13.8 g/dL (12.0-15.0); Immature Granulocyte Absolute 0.11 K/mm3 (0.00-0.031); Immature Granulocyte Percent A 0.8 % (0-0.5); Lymphocytes Absolute Auto 1.45 K/mm3 (0.9-3.2); Mean Corpuscular HGB Conc 32.3 g/dl (32-36); Mean Corpuscular Hemoglobin 29.5 pg (26-34); Mean Corpuscular Volume 91.2 fl (80-100); Mean Platelet Volume 10.2 fl (7.4-10.4); Monocytes Absolute Auto 0.5 K/mm3 (0.1-0.6); Monocytes Percent Auto 3.7 % (2.6-8.5); Neutrophils Absolute Auto 12.3 K/mm3 (1.3-6.7); Neutrophils Percent Auto 84.7 % (45.5-73.1); Platelet Count Result 276 k/mm3 (150-375); Red Blood Count 4.68 M/mm3 (4.2-5.4); Red Cell Distribution Width 13.1 % (11.5-14.5); White Blood Count 14.5 K/mm3 (4.5-10.0)
[2023-07-06 07:56] LABS: Alanine Aminotransferase 18 U/L (6-35); Albumin Level 4.5 g/dL (3.5-5.1); Alkaline Phosphatase 90 U/L (38-126); Anion Gap 9 mmol/L (8-16); Aspartate Amino Transferase 27 U/L (14-36); Bilirubin,Total 0.8 mg/dL (0.2-1.3); Blood Urea Nitrogen 16 mg/dL (7-17); Calcium 9.1 mg/dL (8.4-10.2); Carbon Dioxide 28 mmol/L (22-30); Chloride 102 mmol/L (98-107); Estimated Glomerular Filt Rate > 60; Glucose 135 mg/dL (65-110); Lipase 116 U/L (23-300); Potassium 3.8 mmol/L (3.4-5.0); Sodium 139 mmol/L (137-145)
[2023-07-06 09:01] VITALS: BP 144/80; PULSE 68; RESP 18; O2SAT 98
[2023-07-06 10:08] VITALS: BP 152/88; PULSE 85; RESP 16; O2SAT 99
== END 2023-07-06 10:09 | disposition home or self-care (01) ==
PROVIDERS: Emergency Provider Emergency Medicine; PCP Family Medicine
DX: R11.2 Nausea with vomiting, unspecified (principal); R19.7 Diarrhea, unspecified
CPT/HCPCS: 36415; 74177; 80053; 83690; 85025; 96361; 96374; 99284; J2405; J7030; Q9967

== ENCOUNTER 2023-07-15 09:13 | Outpatient (CLI) | payer MEDICARE, OTHER, SELFPAY ==
--- NOTE | ~2023-07-15 | XR_ITS ---
Lumbosacral Spine: AP and lateral views Clinical History: Pain Findings: There is dextroscoliosis of the lumbar spine. No fracture identified. There is 6 mm retroli sthesis of L2 over L3. There is 5 mm anterolisthesis of L4 over L5. There is 10 mm anterolisthesis of L5 over S1. There is moderate to advanced degenerative disc narrowing from L3 through S1. There is m oderate to severe facet arthropathy throughout the lumbar spine. The sacroiliac joints are normally outlined. Impression: 6 mm retrolisthesis of L2 over L3. 5 mm anterolisthesis of L4 over L5. 10 mm anterolisthesis of L5 over S1. Moderate to severe degenerative spondylosis, with dextroscoliosis. Reviewed, dictated and finalized at location . [facility] [employer] Impression: 6 mm retrolisthesis of L2 over L3. 5 mm anterolisthesis of L4 over L5. 10 mm anterolisthesis of L5 over S1. Moderate to severe degenerative spondylosis, with dextroscoliosis.
--- NOTE | ~2023-07-15 | XR_ITS ---
Right Knee Technique: AP, lateral, and oblique views were obtained. Clinical History: Pain Findings: No fracture or dislocation is seen. Osseous alignment is anatomic. Joint spaces are preserv ed without degenerative or erosive change. Soft tissues are unremarkable. No joint effusion is seen. Impression: Unremarkable right knee radiographs. Reviewed, dictated and finalized at [facility]. M FLATTENER Impression: Unremarkable right knee radiographs.
== END 2023-07-15 09:14 | disposition home or self-care (01) ==
PROVIDERS: PCP Family Medicine; Visit Provider Nurse Practitioner Family
DX: M25.561 Pain in right knee (principal); M54.31 Sciatica, right side; M41.86 Other forms of scoliosis, lumbar region; M43.16 Spondylolisthesis, lumbar region
CPT/HCPCS: 72100; 73562

== ENCOUNTER 2023-09-17 10:12 | Outpatient (CLI) | payer MEDICARE, OTHER, SELFPAY ==
--- NOTE | ~2023-09-17 | XR_ITS ---
Lumbosacral Spine: AP and lateral views Clinical History: Pain Findings: The normal lordotic curve is maintained. There is mild dextroscoliosis. No fracture identif ied. There is 8mm anterolisthesis of L4 over L5. There is 3 mm retrolisthesis of L2 over L3. There is 5 mm anterolisthesis of L5 over S1. There is moderate degenerative disc change throughout the lumbar spine. There is advanced facet arthropathy throughout the lumbar spine. The sacroiliac joints are no rmally outlined. Impression: 3 mm retrolisthesis of L2 over L3. 8 mm anterolisthesis of L4 over L5. 5 mm anterolisthesis of L5 over S1. Moderate to advanced spondylosis, as above. Reviewed, dictated and finalized at location . [employer] Impression: 3 mm retrolisthesis of L2 over L3. 8 mm anterolisthesis of L4 over L5. 5 mm anterolisthesis of L5 over S1. Moderate to advanced spondylosis, as above.
--- NOTE | ~2023-09-17 | XR_ITS ---
Right Knee Technique: AP, lateral, and sunrise views were obtained. Clinical History: Pain Findings: No fracture or dislocation is seen. Osseous alignment is anatomic. Joint spaces are preserv ed without degenerative or erosive change. Soft tissues are unremarkable. No joint effusion is seen. Impression: Unremarkable right knee radiographs. Reviewed, dictated and finalized at location . [employer] Impression: Unremarkable right knee radiographs.
== END 2023-09-17 10:13 | disposition home or self-care (01) ==
PROVIDERS: PCP Family Medicine; Visit Provider Family Medicine
DX: M25.561 Pain in right knee (principal); M54.31 Sciatica, right side; M47.896 Other spondylosis, lumbar region
CPT/HCPCS: 72100; 73562

== ENCOUNTER 2023-10-25 17:38 | Emergency (ER) | payer MEDICARE, OTHER, SELFPAY ==
[2023-10-25 18:00] VITALS: BP 133/88; PULSE 97; RESP 16; TEMP 36.3; O2SAT 100
[2023-10-25 21:08] LABS: Basophils Percent Auto 0.3 % (0.2-1.2); Eosinophils Percent Auto 0.1 % (0-4.4); Hematocrit 42.3 % (37.0-47.0); Hemoglobin 13.8 g/dL (12.0-15.0); Immature Granulocyte Absolute 0.05 K/mm3 (0.00-0.031); Immature Granulocyte Percent A 0.5 % (0-0.5); Lymphocytes Absolute Auto 2.01 K/mm3 (0.9-3.2); Lymphocytes Percent Auto 19.7 % (18.3-44.2); Mean Corpuscular HGB Conc 32.6 g/dl (32-36); Mean Corpuscular Hemoglobin 29.7 pg (26-34); Mean Platelet Volume 10.2 fl (7.4-10.4); Monocytes Absolute Auto 0.8 K/mm3 (0.1-0.6); Monocytes Percent Auto 7.9 % (2.6-8.5); Neutrophils Absolute Auto 7.3 K/mm3 (1.3-6.7); Neutrophils Percent Auto 71.5 % (45.5-73.1); Platelet Count Result 262 k/mm3 (150-375); Red Blood Count 4.65 M/mm3 (4.2-5.4); Red Cell Distribution Width 13.2 % (11.5-14.5); White Blood Count 10.2 K/mm3 (4.5-10.0)
[2023-10-25 21:23] LABS: Magnesium 2.2 mg/dL (1.6-2.3)
[2023-10-25 21:24] LABS: Alanine Aminotransferase 16 U/L (6-35); Albumin Level 4.4 g/dL (3.5-5.1); Alkaline Phosphatase 91 U/L (38-126); Anion Gap 9 mmol/L (8-16); Aspartate Amino Transferase 29 U/L (14-36); Blood Urea Nitrogen 11 mg/dL (7-17); Calcium 9.8 mg/dL (8.4-10.2); Carbon Dioxide 28 mmol/L (22-30); Chloride 104 mmol/L (98-107); Estimated Glomerular Filt Rate > 60; Glucose 112 mg/dL (65-110); Potassium 3.9 mmol/L (3.4-5.0); Sodium 141 mmol/L (137-145)
--- NOTE | 2023-10-25 21:31 | ED.GENADULT ---
HPI - General Adult General Chief complaint: Nausea/Vomiting/Diarrhea Stated complaint: n/v Time Seen by Provider: 10/25/23 20:32 History of Present Illness HPI narrative: Patient is a 78-year-old female who presents to the emergency department this evening complaining of nausea, vomiting, and diarrhea which started yesterday. Since today she has had a total of 5 episodes of diarrhea and vomiting, nonbloody. Patient denies any sick contacts at home or exposure to known COVID/influenza. She is currently denying any chest pain, shortness of breath, or abdominal pain. Patient also denies any dysuria or hematuria. The remainder of the history of present illness and review of systems negative unless stated otherwise in HPI. Related Data Home Medications Medication Instructions Recorded Confirmed amlodipine 5 mg tablet (Norvasc) 5 mg PO DAILY 11/13/19 01/02/23 lisinopril 20 mg tablet 20 mg PO DAILY 11/13/19 01/02/23 metoprolol succinate 100 mg 100 mg PO DAILY 11/13/19 01/02/23 tablet,extended release 24 hr (Toprol XL) gabapentin 300 mg capsule 300 mg PO DIRECTED 04/19/20 01/02/23 loratadine 10 mg tablet 10 mg PO DAILY 08/19/21 01/02/23 Allergies Allergy/AdvReac Type Severity Reaction Status Date / Time No Known Allergies Allergy Mild Verified 10/25/23 20:40 Review of Systems Review of Systems: All systems are reviewed and are negative unless stated otherwise in the HPI. [facility] Past Medical History Medical History Anxiety Arthritis Basal cell carcinoma forehead BP (high blood pressure) Carpal tunnel syndrome on both sides (~2008) CVA (cerebral vascular accident) Depression High cholesterol MVP (mitral valve prolapse) Osteoporosis Overactive bladder Restless leg syndrome Screening mammogram, encounter for Surgical History Surgical History H/O left breast biopsy (07/07/04) left breast biopsy- benign x 2 H/O tubal ligation H/O: hysterectomy (~09/11/02) TVH BSO, bladder suspension - uterine fibroids History of gynecological procedure (~1976) vaginal cyst History of hysteroscopy (~1972) hscope D&C vaginal bleeding Hx of tonsillectomy (~3) Family History Family History Father Heart disease Hypertension Malignant neoplasm of prostate Mother Breast cancer Other Family history non-contributory Social History Social History Smoking status: Never smoker Alcohol intake: never Substance use: never Substance use type: does not use Living arrangements: other Additional living arrangements comments: Occupation/Education: retired Gender identity (if verbalized by the patient): Female Sexual Orientation (if Verbalized by the Patient): Straight or Heterosexual Exam Narrative: General: Alert, awake, afebrile, in no acute distress. HEENT: PERRL, no rhinorrhea, no post nasal drip, oropharynx clear. Neck: Trachea midline, no JVD, no lymphadenopathy. Cardiovascular: Regular rate and rhythm, no murmurs, rubs or gallops, no peripheral edema. Respiratory: Clear to auscultation bilaterally, no tachypnea, no wheezing, no rhonchi, no rubs, no respiratory distress. Abdomen: Soft, nontender, nondistended, no rebound, no guarding, no peritoneal signs. Musculoskeletal: No joint swelling or deformity, normal muscle tone. Skin: No rashes or petechia, no signs of infection. Psychiatric: Alert and oriented, normal behavior and judgment for situation. Neurological: Alert and oriented to person, place, and time. Follows all commands. No focal deficits, speech is clear and fluent. Course Vital Signs Vital signs: Vital Signs Temperature 97.3 F L 10/25/23 18:00 Pulse Rate 97 10/25/23 18:00 Respiratory Rate 16 10/25/23 18:00 Blood Pressure 133/88
[2023-10-25 21:51] LABS: Influenza A QL RT-PCR Negative (Negative); Influenza B QL RT-PCR Negative (Negative); SARS-CoV-2 RNA PCR Negative (Negative)
[2023-10-25] MEDS: SODIUM CHLORIDE 0.9% IV 1,000 ML 999 ML IV CONT (22:15)
[2023-10-25] MEDS: ONDANSETRON INJ 4 MG/2 ML VIAL IV PUSH (22:16)
[2023-10-25 22:18] VITALS: BP 149/78; PULSE 89; RESP 16; TEMP 36.4; O2SAT 97
[2023-10-25 23:13] VITALS: BP 137/89; PULSE 85; RESP 16; O2SAT 97
== END 2023-10-25 23:15 | disposition home or self-care (01) ==
PROVIDERS: Emergency Provider Emergency Medicine; PCP Family Medicine
DX: K52.9 Noninfective gastroenteritis and colitis, unspecified (principal); Z20.822 Contact with and (suspected) exposure to COVID-19; E78.00 Pure hypercholesterolemia, unspecified; N32.81 Overactive bladder; G25.81 Restless legs syndrome; I34.1 Nonrheumatic mitral (valve) prolapse; M81.0 Age-related osteoporosis without current pathological fracture; M19.90 Unspecified osteoarthritis, unspecified site; Z85.828 Personal history of other malignant neoplasm of skin; Z86.73 Personal history of transient ischemic attack (TIA), and cerebral infarction without residual deficits; Z90.710 Acquired absence of both cervix and uterus
CPT/HCPCS: 36415; 80053; 83735; 85025; 87636; 96361; 96374; 99284; J2405; J7030

== ENCOUNTER 2023-12-15 17:20 | Emergency (ER) | payer MEDICARE, OTHER, SELFPAY ==
[2023-12-15 17:32] VITALS: BP 154/93; PULSE 74; RESP 16; TEMP 37; O2SAT 97
--- NOTE | 2023-12-15 18:16 | ED.NAVMDI ---
HPI - Nausea/Vomiting/Diarrhea General Chief complaint: Nausea/Vomiting/Diarrhea Stated complaint: vomiting,diarrhea Time Seen by Provider: 12/15/23 18:17 Source: patient Mode of arrival: ambulatory Limitations: no limitations History of Present Illness HPI Narrative: 78-year-old female presents with complaint of nausea vomiting diarrhea since yesterday. Afebrile. Reports fatigue. patient states that she has a GI bug. Is asking for prescription for Zofran. States she has had in the past and helps with nausea. patient states that she has vomited several times. Has only had a couple episodes of diarrhea. All systems reviewed and negative except as noted above. Related Data Home Medications Medication Instructions Recorded Confirmed amlodipine 5 mg tablet (Norvasc) 5 mg PO DAILY 11/13/19 12/15/23 lisinopril 20 mg tablet 20 mg PO DAILY 11/13/19 12/15/23 metoprolol succinate 100 mg 100 mg PO DAILY 11/13/19 12/15/23 tablet,extended release 24 hr (Toprol XL) gabapentin 300 mg capsule 300 mg PO DIRECTED 04/19/20 12/15/23 loratadine 10 mg tablet 10 mg PO DAILY 08/19/21 12/15/23 escitalopram oxalate 20 mg tablet 20 mg PO DAILY 12/15/23 12/15/23 fexofenadine 180 mg tablet 180 mg PO DAILY 12/15/23 12/15/23 meloxicam 15 mg tablet 15 mg PO DAILY 12/15/23 12/15/23 Allergies Allergy/AdvReac Type Severity Reaction Status Date / Time No Known Allergies Allergy Mild Verified 12/15/23 17:54 Review of Systems Review of Systems: CONSTITUTIONAL: Denies fever, chills, or sweats. EYES: Denies visual changes, redness, or discharge. ENT: Denies rhinorrhea, congestion, sore throat, or otalgia. CARDIOVASCULAR: Denies chest pain, palpitations, or edema. RESPIRATORY: Denies cough or dyspnea. GASTROINTESTINAL: Denies abdominal pain . Reports nausea, vomiting, and diarrhea. GENITOURINARY: Denies dysuria or hematuria. SKIN: Denies rash or itching. MUSCULOSKELETAL: Denies back pain, joint pain, or myalgia. NEUROLOGIC: Denies headache, numbness, or weakness. PSYCHIATRIC: Denies anxiety or depression. All other systems reviewed are negative, except as documented in HPI. [facility] Past Medical History Medical History Anxiety Arthritis Basal cell carcinoma forehead BP (high blood pressure) Carpal tunnel syndrome on both sides (~2008) CVA (cerebral vascular accident) Depression High cholesterol MVP (mitral valve prolapse) Osteoporosis Overactive bladder Restless leg syndrome Screening mammogram, encounter for Surgical History Surgical History H/O left breast biopsy (07/07/04) left breast biopsy- benign x 2 H/O tubal ligation H/O: hysterectomy (~09/11/02) TVH BSO, bladder suspension - uterine fibroids History of gynecological procedure (~1976) vaginal cyst History of hysteroscopy (~1972) hscope D&C vaginal bleeding Hx of tonsillectomy (~1952) Family History Family History Father Heart disease Hypertension Malignant neoplasm of prostate Mother Breast cancer Other Family history non-contributory Social History Social History Smoking status: Never smoker Alcohol intake: never Substance use: never Substance use type: does not use Living arrangements: other Additional living arrangements comments: Occupation/Education: retired Gender identity (if verbalized by the patient): Female Sexual Orientation (if Verbalized by the Patient): Straight or Heterosexual Comments At time of signature, agree with nursing past medical, surgical, social and family history. There is no relevant family history pertinent to the presenting complaint. Exam Narrative: GENERAL: This is a well-nourished, well-developed patient, in no apparent distress. HEAD: normocephalic, atra
[2023-12-15] MEDS: ONDANSETRON HCL ODT 4 MG TABLET SUBLINGUAL (18:33)
== END 2023-12-15 18:38 | disposition home or self-care (01) ==
PROVIDERS: Emergency Provider Nurse Practitioner Family; PCP Family Medicine
DX: A08.4 Viral intestinal infection, unspecified (principal); M19.90 Unspecified osteoarthritis, unspecified site; I10 Essential (primary) hypertension; Z86.73 Personal history of transient ischemic attack (TIA), and cerebral infarction without residual deficits; E78.00 Pure hypercholesterolemia, unspecified; M81.0 Age-related osteoporosis without current pathological fracture; G25.81 Restless legs syndrome; F41.9 Anxiety disorder, unspecified; Z85.828 Personal history of other malignant neoplasm of skin
CPT/HCPCS: 99213; A9270; G0463

== ENCOUNTER 2024-04-01 10:55 | Emergency (ER) | payer MEDICARE, OTHER, SELFPAY ==
[2024-04-01] VITALS (7 sets, daily range): BP systolic 143–190; BP diastolic 75–90; PULSE 65–93; RESP 17–23; TEMP 36.6; O2SAT 97–100
[2024-04-01 13:33] LABS: Alanine Aminotransferase 17 U/L (6-35); Albumin Level 4.8 g/dL (3.5-5.1); Alkaline Phosphatase 77 U/L (38-126); Anion Gap 13 mmol/L (4-12); Aspartate Amino Transferase 21 U/L (14-36); Bilirubin,Total 0.9 mg/dL (0.2-1.3); Blood Urea Nitrogen 10 mg/dL (7-17); Calcium 9.4 mg/dL (8.4-10.2); Carbon Dioxide 29 mmol/L (22-30); Chloride 100 mmol/L (98-107); Estimated Glomerular Filt Rate > 60; Glucose 122 mg/dL (65-110); Lipase 103 U/L (23-300); Potassium 3.7 mmol/L (3.4-5.0); Sodium 142 mmol/L (137-145)
[2024-04-01 13:35] LABS: Basophils Absolute Auto 0.1 K/mm3 (0.0-0.1); Basophils Percent Auto 0.4 % (0.2-1.2); Eosinophils Percent Auto 0.1 % (0-4.4); Hematocrit 46.8 % (37.0-47.0); Immature Granulocyte Absolute 0.16 K/mm3 (0.00-0.031); Immature Granulocyte Percent A 1.3 % (0-0.5); Lymphocytes Absolute Auto 1.95 K/mm3 (0.9-3.2); Lymphocytes Percent Auto 15.5 % (18.3-44.2); Mean Corpuscular HGB Conc 32.1 g/dl (32-36); Mean Corpuscular Hemoglobin 30.4 pg (26-34); Mean Corpuscular Volume 94.7 fl (80-100); Mean Platelet Volume 10.5 fl (7.4-10.4); Monocytes Absolute Auto 0.7 K/mm3 (0.1-0.6); Monocytes Percent Auto 5.9 % (2.6-8.5); Neutrophils Absolute Auto 9.7 K/mm3 (1.3-6.7); Neutrophils Percent Auto 76.8 % (45.5-73.1); Platelet Count Result 300 k/mm3 (150-375); Red Blood Count 4.94 M/mm3 (4.2-5.4); Red Cell Distribution Width 13.2 % (11.5-14.5); White Blood Count 12.6 K/mm3 (4.5-10.0)
[2024-04-01] MEDS: ONDANSETRON INJ 4 MG/2 ML VIAL IV PUSH ×2 (13:47→15:48)
[2024-04-01] MEDS: SODIUM CHLORIDE 0.9% IV 1,000 ML 999 ML IV CONT (13:47)
[2024-04-01 14:11] LABS: Appearance Urine Cloudy (Clear); Bacteria Urine None Seen /hpf; Bilirubin Urine Negative (Negative); Blood Urine Negative (Negative); Color Urine Yellow (Yellow); Glucose Urine UA Negative (Negative); Ketones Urine Trace mg/dL (Negative); Leukocyte Esterase Ur Negative LEU/UL (Negative); Nitrate Urine Negative (Negative); Non Pathogenic Casts 0-2; Protein Urine Negative (Negative); RBC Urine 0-2 /hpf (0-2); Specific Grav Ur 1.019 (1.001-1.035); Squamous Epithelial Cell Urine Occasional /hpf (Few); Urobilinogen Urine 0.2 mg/dL (<2.0); WBC Urine 0-5 /hpf (0-3)
[2024-04-01 14:12] LABS: Add Urine Microscopic? YES
--- NOTE | 2024-04-01 15:26 | ED.NAVMDI ---
HPI - Nausea/Vomiting/Diarrhea General Chief complaint: Nausea/Vomiting/Diarrhea Stated complaint: nausea/vomiting Time Seen by Provider: 04/01/24 13:21 History of Present Illness HPI Narrative: Patient is a 79-year-old female who presents ER with nausea and vomiting. Began this morning. Multiple episodes of emesis. No fevers or chills or sweats. No urinary symptoms. She has had some mild diarrhea. No blood in stool or emesis. No known sick contacts. Related Data Home Medications Medication Instructions Recorded Confirmed amlodipine 5 mg tablet (Norvasc) 5 mg PO DAILY 11/13/19 12/15/23 lisinopril 20 mg tablet 20 mg PO DAILY 11/13/19 12/15/23 metoprolol succinate 100 mg 100 mg PO DAILY 11/13/19 12/15/23 tablet,extended release 24 hr (Toprol XL) gabapentin 300 mg capsule 300 mg PO DIRECTED 04/19/20 12/15/23 loratadine 10 mg tablet 10 mg PO DAILY 08/19/21 12/15/23 escitalopram oxalate 20 mg tablet 20 mg PO DAILY 12/15/23 12/15/23 fexofenadine 180 mg tablet 180 mg PO DAILY 12/15/23 12/15/23 meloxicam 15 mg tablet 15 mg PO DAILY 12/15/23 12/15/23 Allergies Allergy/AdvReac Type Severity Reaction Status Date / Time No Known Allergies Allergy Mild Verified 04/01/24 13:14 Review of Systems Review of Systems: All systems reviewed & are unremarkable except as noted in HPI and below Constitutional: Constitutional: Reports no additional constitutional complaints Cardiovascular: Cardiovascular: Reports no additional cardiovascular complaints Respiratory: Respiratory: Reports no additional respiratory complaints Gastrointestinal: Gastrointestinal: Denies abdominal pain, Reports diarrhea, Reports nausea and Reports vomiting Genitourinary: Genitourinary: Reports no additional female genitourinary complaints PMFSH Past Medical History Medical History Anxiety Arthritis Basal cell carcinoma forehead BP (high blood pressure) Carpal tunnel syndrome on both sides (~2008) CVA (cerebral vascular accident) Depression High cholesterol MVP (mitral valve prolapse) Osteoporosis Overactive bladder Restless leg syndrome Screening mammogram, encounter for Surgical History Surgical History H/O left breast biopsy (07/07/04) left breast biopsy- benign x 2 H/O tubal ligation H/O: hysterectomy (~09/11/02) TVH BSO, bladder suspension - uterine fibroids History of gynecological procedure (~1976) vaginal cyst History of hysteroscopy (~1972) hscope D&C vaginal bleeding Hx of tonsillectomy (~1952) Family History Family History Father Heart disease Hypertension Malignant neoplasm of prostate Mother Breast cancer Other Family history non-contributory Social History Social History Smoking status: Never smoker Alcohol intake: never Substance use: never Substance use type: does not use Living arrangements: other Additional living arrangements comments: Occupation/Education: retired Gender identity (if verbalized by the patient): Female Sexual Orientation (if Verbalized by the Patient): Straight or Heterosexual Exam Narrative: GENERAL: Well-appearing, well-nourished, and in no acute distress. HEAD: Normocephalic, atraumatic. ENT: Mucous membranes moist. CHEST: Clear to auscultation. No respiratory distress. HEART: Regular rate and rhythm. Normal peripheral pulses. ABDOMEN: Soft, nontender, nondistended, normal active bowel sounds. EXTREMITIES: Normal range of motion. No edema. SKIN: Warm, dry, no rash. NEURO: Alert and oriented x3. PSYCH: Normal mood and affect. Course Course Emergency Course: Patient hydrated. Given antiemetics. Urinalysis normal. Mild leukocytosis that is related to her vomiting diarrhea. Abdominal exam benign. No CT scan requ
== END 2024-04-01 16:01 | disposition home or self-care (01) ==
PROVIDERS: Emergency Provider Emergency Medicine; PCP Family Medicine
DX: K52.9 Noninfective gastroenteritis and colitis, unspecified (principal); I10 Essential (primary) hypertension; I34.1 Nonrheumatic mitral (valve) prolapse; E78.00 Pure hypercholesterolemia, unspecified; N32.81 Overactive bladder; M81.0 Age-related osteoporosis without current pathological fracture; M19.90 Unspecified osteoarthritis, unspecified site; G25.81 Restless legs syndrome; F41.9 Anxiety disorder, unspecified; F32.A Depression, unspecified; Z85.828 Personal history of other malignant neoplasm of skin; Z90.710 Acquired absence of both cervix and uterus; Z90.722 Acquired absence of ovaries, bilateral; Z90.79 Acquired absence of other genital organ(s); Z79.899 Other long term (current) drug therapy
CPT/HCPCS: 36415; 80053; 81001; 83690; 85025; 96361; 96374; 96376; 99284; J2405; J7030

== ENCOUNTER 2024-04-11 12:39 | Emergency (ER) | payer MEDICARE, OTHER, SELFPAY ==
--- NOTE | ~2024-04-11 | CT_ITS ---
CT abdomen pelvis wo con Ordering provider: Radu Bustos MD History: 79 years Female with . N/V, back pain, hematuria . Comparison: November 05, 2022 Technique: CT abdomen and pelvis without IV and IV and without oral contrast. Automated exposure cont rol and iterative reconstruction technique were employed. The dose-length product was 295.36 mGy-cm. Findings: VISUALIZED LOWER CHEST: Focal Pleural thickening seen adjacent to the right hemidiaphragm. UPPER ABDOMINAL ORGANS: Liver: Normal. Gallbladder: Normal. Spleen: Normal. Stomach/duodenum: Sliding hiatus hernia. Duodenal diverticulum is seen. Pancreas: Normal. Adrenals: Normal. Kidneys: Soft tissue density is seen in the right kidney seen laterally which may be due to scarring in the area. Follow-up to exclude a mass is advised. This area measures 1.5 cm. PELVIC ORGANS: The bladder is normal. BOWEL AND MESENTERY: Colon: No evidence of diverticulitis. Normal appendix. Small Bowel: Normal. No obstruction. Peritoneum/mesentery: No free air or free fluid. No mesenteric lymphadenopathy. RETROPERITONEUM: Mild atheromatous disease of the abdominal aorta. No retroperitoneal lymphadenopat hy. MUSCULOSKELETAL: Superficial soft tissues: Fat containing umbilical hernia. Otherwise, The superficial soft tissues ar e normal. Bones: Severe degenerative changes of the spine. Dextroscoliosis. Minimal spondylolisthesis at the le peewee of L4-L5. IMPRESSION: 1. No acute appendicitis, diverticulitis or intestinal obstruction. No definite kidney stones. 2. Possible bulge from the right kidney pole versus Normal tissue with adjacent scarring. Follow-up advised. Reviewed, dictated and finalized at location A. IMPRESSION: 1. No acute appendicitis, diverticulitis or intestinal obstruction. No definit e kidney stones. 2. Possible bulge from the right kidney pole versus Normal tissue with adjacen t scarring. Follow-up advised.
[2024-04-11 12:45] VITALS: BP 150/99; PULSE 90; RESP 16; TEMP 36.8; O2SAT 98
--- NOTE | 2024-04-11 13:46 | ECG_ITS ---
Test Date: 2024-04-11 14:06:10 Measurements Intervals Pax Rate: 63 P: -15 IL: 134 QRS: -21 QRSD: 76 T: -12 QT: 409 QTc: 421 Interpretive Statements SINUS RHYTHM BORDERLINE LEFT AXIS DEVIATION [QRS AXIS < -20] CANNOT RULE OUT PREVIOUS INFERIOR INFARCTION NONSPECIFIC T-WAVE ABNORMALITY ABNORMAL ECG No previous ECG available for comparison Electronically Signed On 04-12-2024 11:03:56 CDT by Chinmay Da Silva M.D.
--- NOTE | 2024-04-11 13:49 | ED.GENADULT ---
HPI - General Adult General Chief complaint: Urogenital-Female Stated complaint: Dark urine Time Seen by Provider: 04/11/24 13:36 History of Present Illness HPI narrative: This is a 79-year-old female presenting ED with chief complaint of dark urine in GI symptoms. Patient was seen on 722 diagnosed with gastroenteritis that time she was discharged home with Zofran. She has continued to have nausea vomiting and has only intermittently been taking Zofran. She says it has work when she takes it. She has also noticed that she has mucousy stools with no blood. She has had decreased oral intake because of her GI discomfort. patient denies fevers, chest pain difficulty breathing or abdominal pain. She notes urinary urgency and frequency. Related Data Home Medications Medication Instructions Recorded Confirmed amlodipine 5 mg tablet (Norvasc) 5 mg PO DAILY 11/13/19 12/15/23 lisinopril 20 mg tablet 20 mg PO DAILY 11/13/19 12/15/23 metoprolol succinate 100 mg 100 mg PO DAILY 11/13/19 12/15/23 tablet,extended release 24 hr (Toprol XL) gabapentin 300 mg capsule 300 mg PO DIRECTED 04/19/20 12/15/23 loratadine 10 mg tablet 10 mg PO DAILY 08/19/21 12/15/23 escitalopram oxalate 20 mg tablet 20 mg PO DAILY 12/15/23 12/15/23 fexofenadine 180 mg tablet 180 mg PO DAILY 12/15/23 12/15/23 meloxicam 15 mg tablet 15 mg PO DAILY 12/15/23 12/15/23 Allergies Allergy/AdvReac Type Severity Reaction Status Date / Time No Known Allergies Allergy Mild Verified 04/01/24 13:14 [facility] Past Medical History Medical History Anxiety Arthritis Basal cell carcinoma forehead BP (high blood pressure) Carpal tunnel syndrome on both sides (~2008) CVA (cerebral vascular accident) Depression High cholesterol MVP (mitral valve prolapse) Osteoporosis Overactive bladder Restless leg syndrome Screening mammogram, encounter for Surgical History Surgical History H/O left breast biopsy (07/07/04) left breast biopsy- benign x 2 H/O tubal ligation H/O: hysterectomy (~09/11/02) TVH BSO, bladder suspension - uterine fibroids History of gynecological procedure (~1976) vaginal cyst History of hysteroscopy (~1972) hscope D&C vaginal bleeding Hx of tonsillectomy (~1952) Family History Family History Father Heart disease Hypertension Malignant neoplasm of prostate Mother Breast cancer Other Family history non-contributory Social History Social History Smoking status: Never smoker Alcohol intake: never Substance use: never Substance use type: does not use Living arrangements: other Additional living arrangements comments: Occupation/Education: retired Gender identity (if verbalized by the patient): Female Sexual Orientation (if Verbalized by the Patient): Straight or Heterosexual Exam Narrative: APPEARANCE: No apparent distress. Well-appearing Head: atraumatic. EYES: EOMI, NOSE: Atraumatic NECK: Trachea midline RESPIRATORY: No increased rate of breathing clear to auscultation CARDIOVASCULAR: RRR, no peripheral edema ABDOMINAL: Non-distended soft nontender no guarding rebound no CVA tenderness MUSCULOSKELETAl: No obvious deformities NEURO: Alert. Moving 4/4 extremities SKIN:: Warm, dry. Normal color PSYCHIATRIC: Normal affect Course Vital Signs Vital signs: Vital Signs Temperature 98.3 F 04/11/24 12:45 Pulse Rate 90 04/11/24 12:45 Respiratory Rate 16 04/11/24 12:45 Blood Pressure 150/99 H 04/11/24 12:45 Pulse Oximetry 98 04/11/24 12:45 Oxygen Delivery Room Air 04/11/24 12:45 Temperature 98.3 F 04/11/24 12:45 Pulse Rate 88 04/11/24 16:40 Respiratory Rate 26 H 04/11/24 16:40 Blood Pressure 175/93 H 04/11/24 16:40 Pulse Oximetry 100 08
[2024-04-11 14:04] VITALS: BP 154/89; PULSE 67; RESP 19; O2SAT 99
[2024-04-11] MEDS: FAMOTIDINE 20 MG/2 ML VIAL IV PUSH (14:18)
[2024-04-11] MEDS: ONDANSETRON INJ 4 MG/2 ML VIAL IV PUSH ×2 (14:18→15:47)
[2024-04-11] MEDS: SODIUM CHLORIDE 0.9% IV 2,000 ML 999 ML IV CONT (14:19)
[2024-04-11 14:33] LABS: Lactic Acid Reflex 1.7 mmol/L (0.7-2.0)
[2024-04-11 14:34] LABS: Alanine Aminotransferase 12 U/L (6-35); Albumin Level 4.4 g/dL (3.5-5.1); Alkaline Phosphatase 58 U/L (38-126); Anion Gap 9 mmol/L (4-12); Aspartate Amino Transferase 21 U/L (14-36); Blood Urea Nitrogen 12 mg/dL (7-17); Carbon Dioxide 31 mmol/L (22-30); Chloride 100 mmol/L (98-107); Estimated Glomerular Filt Rate > 60; Glucose 116 mg/dL (65-110); Phosphorus 2.9 mg/dL (2.5-4.5); Potassium 3.6 mmol/L (3.4-5.0); Sodium 140 mmol/L (137-145)
[2024-04-11 14:39] LABS: Basophils Absolute Auto 0.1 K/mm3 (0.0-0.1); Basophils Percent Auto 0.4 % (0.2-1.2); Eosinophils Percent Auto 0.1 % (0-4.4); Hematocrit 43.9 % (37.0-47.0); Immature Granulocyte Absolute 0.08 K/mm3 (0.00-0.031); Immature Granulocyte Percent A 0.7 % (0-0.5); Lymphocytes Absolute Auto 1.56 K/mm3 (0.9-3.2); Lymphocytes Percent Auto 13.5 % (18.3-44.2); Mean Corpuscular HGB Conc 31.9 g/dl (32-36); Mean Corpuscular Hemoglobin 30.3 pg (26-34); Mean Platelet Volume 10.7 fl (7.4-10.4); Monocytes Absolute Auto 0.9 K/mm3 (0.1-0.6); Monocytes Percent Auto 7.7 % (2.6-8.5); Neutrophils Percent Auto 77.6 % (45.5-73.1); Platelet Count Result 288 k/mm3 (150-375); Red Blood Count 4.62 M/mm3 (4.2-5.4); White Blood Count 11.6 K/mm3 (4.5-10.0)
[2024-04-11 14:41] LABS: Influenza A QL RT-PCR Negative (Negative); Influenza B QL RT-PCR Negative (Negative); RSV RNA, RT-PCR Negative (Negative); SARS-CoV-2 RNA PCR Negative (Negative)
[2024-04-11 15:07] VITALS: BP 167/74; PULSE 66; RESP 19; O2SAT 99
[2024-04-11 15:37] VITALS: BP 167/74; PULSE 65; RESP 19; O2SAT 100
[2024-04-11 16:10] LABS: Add Urine Microscopic? YES; Appearance Urine Turbid (Clear); Color Urine Red (Yellow); Non Pathogenic Casts 0-2; RBC Urine >100 /hpf (0-2); Squamous Epithelial Cell Urine Moderate /hpf (Few); WBC Urine 21-50 /hpf (0-3)
[2024-04-11 16:13] LABS: Need Manual Microscopic Reviewed
[2024-04-11 16:17] LABS: Bacteria Urine 1+ /hpf
[2024-04-11 16:40] VITALS: BP 175/93; PULSE 88; RESP 26; O2SAT 100
== END 2024-04-11 18:18 | disposition home or self-care (01) ==
PROVIDERS: Emergency Medicine; Emergency Provider Emergency Medicine; PCP Family Medicine
DX: N39.0 Urinary tract infection, site not specified (principal); R31.9 Hematuria, unspecified; R11.0 Nausea; I10 Essential (primary) hypertension; I34.1 Nonrheumatic mitral (valve) prolapse; E78.00 Pure hypercholesterolemia, unspecified; N32.81 Overactive bladder; M81.0 Age-related osteoporosis without current pathological fracture; M19.90 Unspecified osteoarthritis, unspecified site; G25.81 Restless legs syndrome; F32.A Depression, unspecified; F41.9 Anxiety disorder, unspecified; Z85.828 Personal history of other malignant neoplasm of skin; Z86.73 Personal history of transient ischemic attack (TIA), and cerebral infarction without residual deficits; Z90.710 Acquired absence of both cervix and uterus; Z79.899 Other long term (current) drug therapy
CPT/HCPCS: 36415; 74176; 80053; 81001; 83605; 83735; 84100; 85025; 87086; 87637; 93005; 96361; 96365; 96375; 96376; 99284; J0696; J2405; J7030

== ENCOUNTER 2024-10-21 16:56 | Emergency (ER) | payer MEDICARE, SELFPAY ==
[2024-10-21 17:07] VITALS: BP 140/88; PULSE 108; RESP 16; TEMP 36.5; O2SAT 100
--- NOTE | 2024-10-21 17:49 | ED_ITS ---
HPI - General Adult General Chief complaint: Nausea/Vomiting/Diarrhea Stated complaint: Diarrhea/Chills Time Seen by Provider: 10/21/24 17:49 Source: patient, RN notes reviewed and old records reviewed Mode of arrival: ambulatory Limitations: no limitations History of Present Illness HPI narrative: 79-year-old female presents to the [facility] with complaints of 5 episodes of diarrhea today. Started with chills last night. No treatment prior to arrival. States that she does not know what to take. Has an even taking her home medications. Denies any abdominal pain, nausea or vomiting. Denies any fevers. Onset (ago): day(s) (1) Treatments prior to arrival: none Related Data Allergies Allergy/AdvReac Type Severity Reaction Status Date / Time No Known Allergies Allergy Mild Verified 10/21/24 17:04 Review of Systems Review of Systems: All systems reviewed & are unremarkable except as noted in HPI and below Constitutional: Constitutional: Reports no additional constitutional complaints ENT: Reports system reviewed and no additional complaints, except as documented Cardiovascular: Cardiovascular: Reports no additional cardiovascular complaints, Denies chest pain and Denies dyspnea Respiratory: Respiratory: Reports no additional respiratory complaints, Denies chest congestion, Denies cough and Denies dyspnea Gastrointestinal: Gastrointestinal: Reports as per HPI Musculoskeletal: Musculoskeletal: Reports no additional musculoskeletal complaints Integumentary/Breasts: Skin/Breast: Reports system reviewed and no additional complaints, except as docu PMFSH Past Medical History Medical History Screening mammogram, encounter for Carpal tunnel syndrome on both sides (~2008) Overactive bladder Osteoporosis High cholesterol MVP (mitral valve prolapse) Basal cell carcinoma forehead Arthritis Restless leg syndrome Anxiety CVA (cerebral vascular accident) Depression BP (high blood pressure) Surgical History Surgical History H/O left breast biopsy (07/07/04) left breast biopsy- benign x 2 H/O tubal ligation History of hysteroscopy (~1972) hscope D&C vaginal bleeding History of gynecological procedure (~1976) vaginal cyst H/O: hysterectomy (~09/11/02) TVH BSO, bladder suspension - uterine fibroids Hx of tonsillectomy (~1952) Family History Family History Father Heart disease Hypertension Malignant neoplasm of prostate Mother Breast cancer Other Family history non-contributory Social History Social History Smoking status: Never smoker Alcohol intake: never Substance use: never Substance use type: does not use Living arrangements: other Additional living arrangements comments: Occupation/Education: retired Gender identity (if verbalized by the patient): Female Sexual Orientation (if Verbalized by the Patient): Straight or Heterosexual Comments At the time of my signature, I reviewed and agree with the nursing past medical, surgical, social, and family history. There is no relevant family history p ertinent to the patient complaint. Exam Const: General: cooperative, comfortable, no acute distress, well developed, alert, ill appearing chronically and well nourished Nutritional Appearance: well nourished Orientation/consciousness: patient oriented x3 Limitations: no limitations HENMT: Head: normal to inspection Eyes: General: appearance normal, both eyes and all related structures Alignment and Position: alignment normal Neck: Neck: normal visual inspection, full ROM, no lymphadenopathy and no meningeal signs Chest: Chest palpation & inspection: normal inspection of the chest Resp: Effort & Inspection: normal respiratory effort and able to speak in complete sentences Auscultation: clear to auscultation bilaterally, no crackles, no rales, no rhonchi and no wheezes Cardio: Rate: regular rate GI: GI Palp: No abdominal tenderness and Yes Soft to palpation Auscultation: normal bowel sounds Skin: General skin exam: normal color and no rashes or lesions noted Neuro: General: patient oriented x3, gait normal, moves all extremities and no meningeal signs Cognition (Neuro): normal cognition Speech: normal speech Gait exam (Neuro): Normal gait present Extrem: General: normal to inspection, full ROM, capillary refill normal and normal gait Psych: Appearance: grossly normal and well kempt Mental Status: mental status grossly normal Speech and movement: Normal speech and movement present and Clear speech present Affect: normal affect Attitude: cooperative Course Course Level of Care: Express Care Visit Vital Signs Vital signs: Vital Signs Temperature 97.7 F 10/21/24 17:07 Pulse Rate 108 H 10/21/24 17:07 Respiratory Rate 16 10/21/24 17:07 Blood Pressure 140/88 10/21/24 17:07 Pulse Oximetry 100 10/21/24 17:07 Oxygen Delivery Room Air 10/21/24 17:07 Temperature 97.7 F 10/21/24 17:07 Pulse Rate 108 H 10/21/24 17:07 Respiratory Rate 16 10/21/24 17:07 Blood Pressure 140/88 10/21/24 17:07 Pulse Oximetry 100 10/21/24 17:07 Oxygen Delivery Room Air 10/21/24 17:07 Reviewed Medical Decision Making MDM Narrative Medical decision making narrative: Patient sitting comfortably in exam room. Nontoxic, vitals stable. Patient in no acute distress Complaints of diarrhea and chills. Denies any other complaints at this time. Denied fevers, abdominal pain. Discussed jczo-htq-[id number] treatments. As well as diet modifications. Patient appropriate for outpatient treatment with close follow-up. We also discussed signs and symptoms to proceed to the emergency room which patient verbalized understanding Discharge instructions reviewed with patient, as well as provided in writing per nursing staff. The instructions also include specific and strict return/GO TO THE ER as well as f/u information. All questions have been answered, and the patient deny any further questions with discharge and discharge plan. Some parts of this dictation were generated by voice recognition software and may contain typographical and/or grammatical inaccuracies. Differential Diagnosis Differential Diagnosis: Gastroenteritis, acute diarrhea, Medical Records Medical records reviewed: Yes I reviewed the external patient's medical records. Vital Signs Vital Signs: Vital Signs Temperature 97.7 F 10/21/24 17:07 Pulse Rate 108 H 10/21/24 17:07 Respiratory Rate 16 10/21/24 17:07 Blood Pressure 140/88 10/21/24 17:07 Pulse Oximetry 100 10/21/24 17:07 Oxygen Delivery Room Air 10/21/24 17:07 Temperature 97.7 F 10/21/24 17:07 Pulse Rate 108 H 10/21/24 17:07 Respiratory Rate 16 10/21/24 17:07 Blood Pressure 140/88 10/21/24 17:07 Pulse Oximetry 100 10/21/24 17:07 Oxygen Delivery Room Air 10/21/24 17:07 Reviewed Lab Data Lab results reviewed: Yes I reviewed the patient's lab results. Labs: Lab Results 10/21/24 Range/Units 17:52 POC Influenza A Ag Negative (Negative) POC Influenza B Ag Negative (Negative) POC SARS CoV-2 Ag Negative (Negative) Reviewed Critical Care Time Critical Care Time Critical Care Time: No Discharge Plan Discharge Clinical Impression: Diarrhea Qualifiers: Diarrhea type: unspecified type Qualified Code(s): R19.7 - Diarrhea, unspecified Patient Disposition: Home, Self-Care Condition: Stable Instructions: Antibiotic Form, Acute Diarrhea (ED) Additional Instructions: Today your flu and COVID test were negative For diarrhea keep your diet very simple. Nothing fried, greasy, spicy or highly processed. Be sure to stay hydrated with plenty of water, Gatorade, Pedialyte. For wwng-vlq-okmuqtc products you can take something like Metamucil as well as Imodium to help with the diarrheal symptoms If your symptoms get worse please proceed to the nearest emergency room or if they go on for more than 72 hours Patient Language: Qatari Prescriptions: No Action ondansetron 4 mg tablet,disintegrating 4 mg PO Q8H PRN (Reason: nausea and vomiting) Qty: 30 0RF gabapentin 300 mg capsule 300 mg PO TID PRN (Reason: pain) Qty: 270 1RF mirabegron 25 mg tablet extended release 24 hr See Rx Instructions .ROUTE .COMPLEX Qty: 90 3RF Dose Instruction: TAKE 1 TABLET DAILY Rx Instructions: TAKE 1 TABLET DAILY amlodipine [Norvasc] 5 mg tablet 5 mg PO DAILY Qty: 90 1RF escitalopram oxalate 20 mg tablet 20 mg PO DAILY Qty: 90 1RF fexofenadine 180 mg tablet 180 mg PO DAILY Qty: 90 1RF lisinopril 20 mg tablet 20 mg PO DAILY Qty: 90 1RF meloxicam 15 mg tablet 15 mg PO DAILY Qty: 90 0RF metoprolol succinate [Toprol XL] 100 mg tablet extended release 24 hr 100 mg PO DAILY Qty: 90 1RF Follow-up/Referrals: Guillermo Jensen MD [Primary Care Provider] - 1 Week Time of Disposition: 18:03
[2024-10-21 18:12] LABS: EDCOVIDSCREEN Negative (Negative); EDINFLUASCREEN Negative (Negative); EDINFLUBSCREEN Negative (Negative)
== END 2024-10-21 18:10 | disposition home or self-care (01) ==
PROVIDERS: Emergency Provider Nurse Practitioner; PCP Family Medicine
DX: R19.7 Diarrhea, unspecified (principal); Z20.822 Contact with and (suspected) exposure to COVID-19; E78.00 Pure hypercholesterolemia, unspecified; I34.1 Nonrheumatic mitral (valve) prolapse; M81.0 Age-related osteoporosis without current pathological fracture; M19.90 Unspecified osteoarthritis, unspecified site; G25.81 Restless legs syndrome; I10 Essential (primary) hypertension; Z86.73 Personal history of transient ischemic attack (TIA), and cerebral infarction without residual deficits; Z85.828 Personal history of other malignant neoplasm of skin; F41.9 Anxiety disorder, unspecified
CPT/HCPCS: 87426; 87804; 99213; G0463

== ENCOUNTER 2025-01-24 08:45 | Outpatient (CLI) | payer MEDICARE, OTHER, SELFPAY ==
--- NOTE | ~2025-01-24 | DEXA_ITS ---
Bone Density Report Name: PB BENITES Age: 79 Sex: Female Ethnicity: White Date of : 1945 Indication: postmenopausal; screening for osteoporosis; height loss; hysterectomy; rheumatoid arthritis; Referring Provider: KAREY SELBY Study: Bone densitometry was performed. Exam Date: January 24, 2025 Accession number: [id number] Bone Density: Region BMD T-score Z-score Classification AP Spine(L1-L4) 1.144 0.9 3.4 Normal Femoral Neck (Left) 0.688 -1.4 0.8 Osteopenia Total Hip (Left) 0.877 -0.5 1.4 Normal Femoral Neck (Right) 0.690 -1.4 0.8 Osteopenia Total Hip (Right) 0.830 -0.9 1.0 Normal Total Hip Mean 0.854 -0.7 1.2 Normal World Health Organization criteria for BMD impression classify patients as: Normal (T-score at or above -1.0), Osteopenia (T-score between -1.0 and -2.5), or Osteoporosis (T-score at or below -2.5). 10-year Fracture Risk(1): Major Osteoporotic Fracture 16% Hip Fracture 3.7% Reported Risk Factors: [place] (), Neck BMD=0.688, BMI=26.0, rheumatoid arthritis (1) FRAX(R) Version 3.08. Fracture probability calculated for an untreated patient. Fracture probability may be lower if the patient has received treatment. Previous Exams: Region Exam Age BMD T-score BMD Change BMD Change Date g/cm2 vs Baseline vs Previous AP Spine (L1-L4) 01/24/2025 79 1.144 0.9 0.036 (3.2%)* 0.036 (3.2%)* 06/26/2020 75 1.109 0.6 Total Hip(Left) 01/24/2025 79 0.877 -0.5 -0.009 (-1.1%) -0.009 (-1.1%) 06/26/2020 75 0.886 -0.5 Total Hip(Right) 01/24/2025 79 0.830 -0.9 -0.033 (-3.8%) -0.033 (-3.8%) 06/26/2020 75 0.863 -0.6 *Denotes significance at 95% confidence level, LSC for AP Spine = 0.022 g/cm2, LSC for Total Hip = 0.027 g/cm2 Clinical Information Provided by Patient: Has rheumatoid arthritis Has the following medical conditions: Hysterectomy Patient maximum height was 58 Menopause Age: 54 No regular weight bearing exercise Onset of menses at age 15 Number of children 3 Impression: The patient has low bone mass, based on the Left Femoral Neck T-score. The patient has an estimated ten-year risk of hip fracture of 3.7% and an estimated ten-year risk of major fracture of 16%, based on the WHO FRAX algorithm. The BMD for the Total Hip(Right) decreased, changing by -3.8% since the last DXA exam. Discussion: BONE DENSITY IS LOW AT ONE OR MORE SKELETAL SITES. THE PATIENT'S BMD AND CLINICAL RISK FACTORS CONTRIBUTE TO THIS PATIENT'S INCREASED RISK OF FRACTURE. This patient's lowest T-score is low at one or more skeletal sites. It meets the World Health Organization's (WHO) criteria for “low bone mass” (T-score between -1.0 and -2.5). The patient's 10-year risk of hip fracture as calculated by FRAX exceeds the threshold where pharmacological therapy is recommended by the National Osteoporosis Foundation (NOF). However, all treatment decisions require clinical judgment and consideration of individual patient factors, including patient preferences, comorbidities, previous drug use, risk factors not captured in the FRAX model (e.g., frailty, falls, vitamin D deficiency, increased bone turnover, interval significant decline in bone density) and possible under or overestimation of fracture risk by FRAX. The patient should follow a healthful lifestyle (good nutrition with adequate calcium and vitamin D, and appropriate weight-bearing exercise). Follow-Up: Consider a repeat BMD and Vertebral Fracture Assessment (VFA) exam in 2 years or sooner if medically necessary, to reassess this patient's status. Reported by: BEN on 01/24/2025 9:17:00 AM. Reviewed, dictated and finalized at location A.
--- OUTSIDE RECORDS SUMMARY | 2025-01-24 08:57 | XMS_ITS | CONTINUITY OF CARE DOCUMENT ---
Author Name rona rea Address Unknown Organization [facility] Address [id number] [place] [address] [address] [place] [address] Phone [phone] Care Team Providers Care Cat Sitter Name Role Phone rona rea Unavailable Unavailable
--- OUTSIDE RECORDS SUMMARY | 2025-01-24 08:57 | XMS_ITS | Continuity of Care Document ---
Author Organization [facility] Address [address] [place] [address] Phone Care Team Providers Care Automobile Leasing Supervisor Name Role Phone Marium Chamorro Unavailable Unavailable Procedures Procedure Date Eye Exam & Treatment Refraction Vision Svcs Frames Purchases Progressive Lens, Hi Index Tax - Medical Eye Exam & Treatment Refraction Advance Directives Directive Yes / No Effective Date File Name No Information Encounters Encounter Description Practice Location Reason(s) For Visit Diagnoses Date Provider Providers Copied on Encounter [facility], [address] [place] [address] [address], [place], [place], [address], tel:[phone] [facility] No Information 0-200 9 Ashtyn Causey. [address], [address], [place], [address], [place]. tel:[phone] [facility], [address], [place], [place], [id number], [place] tel:[phone] [facility] No Information [address] [facility] . [address] [facility], [address], [place], [place], [address], . tel:[phone] Referring Provider: Saran Muro, [address] [facility] [address], [place], [address]. tel:[phone] 2019Liss anand Provider: Hermila Rodriguez, [address] [facility], [place], [address]. tel:[phone] [facility], [address], [place], [place], [address], [place] tel:[phone] [facility] No Information 7[address] Yoshikeara Hamiltonald. [address] [facility] [address] [facility], [place], [place], [address], [place]. tel:[phone] Family History Family Member Type Diagnosis Age At Onset No Information Payers Payer name Insurance type Covered constitution party ID Authoriza teshacaden(s) [facility] [id number] Social History Type Description Quantity Date Captured [...]
== END 2025-01-24 08:46 | disposition home or self-care (01) ==
LOC: ANHIMG 08:46
PROVIDERS: PCP Family Medicine; Visit Provider Family Medicine
DX: M81.0 Age-related osteoporosis without current pathological fracture (principal); M85.852 Other specified disorders of bone density and structure, left thigh; M85.851 Other specified disorders of bone density and structure, right thigh
CPT/HCPCS: 77080

== ENCOUNTER 2025-03-27 13:51 | Outpatient (CLI) | payer MEDICARE, OTHER, SELFPAY ==
--- NOTE | ~2025-03-27 | XR_ITS ---
EXAMINATION: SACRUM/COCCYX DATE: 03/27/2025 14:37 INDICATION: Tail bone pain and low back pain after fall TECHNIQUE: Three views sacrum/coccyx FINDINGS: No prior studies for comparison. There is no displaced fracture of the sacrum. The coccyx demonstrates overall normal morphology with out acute angulation.There are asymmetric degenerative changes of the sacroiliac joints, right greate r than left. There is mild osteitis pubis. There is severe lower lumbar spondylosis with grade 1 spon dylolisthesis at L4-5 and L5-S1. IMPRESSION: 1. No acute displaced osseous abnormality of the sacrum. Suspicion for occult or nondisplaced sacral fracture can either be evaluated with CT or MRI. 2. Grossly normal morphology to the coccyx without acute angulation. However, due to the wide range of normal variation of the coccyx, acute injury would be best evaluated by clinical examination and patient's symptoms. Reviewed, dictated and finalized at location A.
--- NOTE | ~2025-03-27 | XR_ITS ---
3 VIEWS LUMBAR SPINE Ordering provider: Jose Guadalupe Starks APRN History: . M48.061 - Spinal stenosis, lumbar region without neurogen... . Comparison: September 17, 2023 FINDINGS: VERTEBRAL BODIES:Spondylolisthesis at the level of L4-L5. Retrolisthesis at the level of L2-L3. No v isible fracture or subluxation. Dextroscoliosis. DISK SPACES: Narrowing of all the disc spaces. Multilevel facet joint disease. SOFT TISSUES: Normal. IMPRESSION: No acute osseous abnormality lumbar spine. Dextroscoliosis. Spondylolisthesis at the level of L4-L5. Retrolisthesis at the level of L2-L3. Multilevel degenerative disc disease. Reviewed, dictated and finalized at location A.
--- OUTSIDE RECORDS SUMMARY | 2025-03-27 14:08 | XMS_ITS | Continuity of Care Document ---
Author Organization [facility] Address [address] [place] [address] Phone Care Team Providers Care Vacuum Drier Tender Name Role Phone Marium Chamorro Unavailable Unavailable Procedures Procedure Date Eye Exam & Treatment Refraction Vision Svcs Frames Purchases Progressive Lens, Hi Index Tax - Medical Eye Exam & Treatment Refraction Advance Directives Directive Yes / No Effective Date File Name No Information Encounters Encounter Description Practice Location Reason(s) For Visit Diagnoses Date Provider Providers Copied on Encounter [facility], [address] [place] [address] [address], [place], [place], [id number], tel:[phone] [facility] No Information 0-200 9 Ashtyn Causey. [address], [place], [address], [place]. tel:[phone] [facility], [address], [place], [place], [address], [place] tel:[phone] [facility] No Information [address] [facility] . [address] [facility], [address], [place], [place], [address], . tel:[phone] Referring Provider: Saran Muro, [address] [facility] [address], [place], [address]. tel:[phone] 2019Liss anand Provider: Hermila Rodriguez, [address] [facility], [place], [address]. tel:[phone] [facility], [address], [place], [place], [address], [place] tel:[phone] [facility] No Information 7[address] Hamilton[address]. [address] [facility], [place], [place], [address], [place]. tel:[phone] Family History Family Member Type Diagnosis Age At Onset No Information Payers Payer name Insurance type Covered libertarian ID Authoriza teshacaden(s) [facility] [id number] Social History Type Description Quantity Date Captured [...]
== END 2025-03-27 13:52 | disposition home or self-care (01) ==
PROVIDERS: PCP Family Medicine; Visit Provider Nurse Practitioner Adult Health
DX: M41.86 Other forms of scoliosis, lumbar region (principal); M47.816 Spondylosis without myelopathy or radiculopathy, lumbar region; M43.16 Spondylolisthesis, lumbar region
CPT/HCPCS: 72114; 72220

== ENCOUNTER 2025-06-16 12:51 | Outpatient (CLI) | payer MEDICARE, OTHER, SELFPAY ==
--- OUTSIDE RECORDS SUMMARY | 2008-11-18 11:00 | XMS_ITS | Continuity of Care Document ---
Author Organization [facility] Eye [facility] Address [address] [place] [address] Phone Care Team Providers Care Press Machine Operator Name Role Phone Marium Chamorro Unavailable Unavailable Procedures Procedure Date Eye Exam & Treatment Refraction Vision Svcs Frames Purchases Progressive Lens, Hi Index Tax - Medical Eye Exam & Treatment Refraction Advance Directives Directive Yes / No Effective Date File Name No Information Encounters Encounter Description Practice Location Reason(s) For Visit Diagnoses Date Provider Providers Copied on Encounter [facility], [address] [place] [address] [address], [place], [place], [id number], tel:[phone] [facility] No Information 0-200 9 Ashtyn Causey. [address], [address], [place], [address], [place]. tel:[phone] [facility], [address] [place] [address] [address], [place], [place], [address], [place] tel:[phone] [facility] No Information 1200 [address] [facility] . [address] [facility], [address], [place], [place], [address], . tel:[phone] Referring Provider: Saran Muro, [address] [facility] [address], [place], [address]. tel:[phone] 2019Liss anand Provider: Hermila Rodriguez, [address] [facility], [place], [address]. tel:[phone] [facility] [place], [address], [place], [place], [address], [place] tel:[phone] [facility] No Information 7200 7 Yoshikeara Hamiltonald. [address], [place], [place], [address], [place]. tel:[phone] Family History Family Member Type Diagnosis Age At Onset No Information Payers Payer name Insurance type Covered green party ID Authoriza teshacaden(s) [facility] [id number] Social History Type Description Quantity Date Captured Comments Sex Female Smoking Status No Information Chief Complaint And Reason For Visit No Information Reason For Referral Reason For Referral No Information History Of Present Illness Encounter Date Complaint History Of Prese nt Illness No Information Functional Status Date Functional Assessmen t No Information Instructions Date Instruction Additional Infor mation No Information Assessments Type Assessment Date No Information Patient Care Teams Name Effective Dates (start - stop) Status Members No Information
--- NOTE | ~2025-06-16 | MR_ITS ---
EXAMINATION: MR lumbar spine wo con DATE: 06/16/2025 14:54 INDICATION: Spinal stenosis, lumbar region without neurogenic claudication. TECHNIQUE: Magnetic resonance imaging (MRI) of the lumbar spine was performed without intravenous contrast. Sequences included sagittal T2-weighted FSE, sagittal T2-weighted FS FSE, sagittal T1-weighted FSE, and axial T2-weighted FSE. COMPARISON: Lumbar spine MRI 07/09/2020 FINDINGS: There is 19 degrees dextroscoliosis of lumbar spine. There is 5 mm retrolisthesis of L1 on L2, 4 mm retrolisthesis of L2 on L3, 3 mm anterolisthesis of L3 on L4, and 5 mm anterolisthesis of L4 on L5 and L5 on S1. Vertebral body heights are normal. There is severely decreased disc height from L1-L2 through L5-S1 with endplate remodeling. There is ligamentum flavum hypertrophy at the disc levels in lumbar spine. The distal spinal cord signal intensity is normal. The conus medullaris is at L1-L2. The following disc levels are specifically discussed: L1-L2: The disc is bulging and has an annular fissure. There is severe right and moderate left facet joint osteoarthritis. There is mild right and moderate left neural foraminal stenosis. There is mild central canal stenosis. L2-L3: The disc is bulging and has an annular fissure. There is severe right and moderate left facet joint osteoarthritis. There is mild bilateral neural foraminal stenosis. There is mild central canal stenosis. L3-L4: The disc is bulging and has an annular fissure. There is severe bilateral facet joint osteoarthritis. There is mild bilateral neural foraminal stenosis. There is mild central canal stenosis. L4-L5: The disc is bulging and has an annular fissure. There is severe bilateral facet joint osteoarthritis. There is moderate right and mild left neural foraminal stenosis. There is moderate central canal stenosis. L5-S1: The disc is bulging and has an annular fissure. There is ankylosis of the facet joints with severe hypertrophy. There is mild bilateral neural foraminal stenosis. There is mild central canal stenosis. IMPRESSION: 1. Severe lumbar spondylosis, worsened from 07/09/2020. 2. Lumbar dextroscoliosis. Reviewed, dictated and finalized at location E.
== END 2025-06-16 12:52 | disposition home or self-care (01) ==
PROVIDERS: PCP Family Medicine; Visit Provider Nurse Practitioner Adult Health
DX: M47.816 Spondylosis without myelopathy or radiculopathy, lumbar region (principal); M47.817 Spondylosis without myelopathy or radiculopathy, lumbosacral region; M41.86 Other forms of scoliosis, lumbar region; M48.061 Spinal stenosis, lumbar region without neurogenic claudication
CPT/HCPCS: 72148

== ENCOUNTER 2025-07-07 09:30 | Day surgery (SDC) | payer MEDICARE, OTHER, SELFPAY ==
--- OUTSIDE RECORDS SUMMARY | 2008-11-18 11:00 | XMS_ITS | Continuity of Care Document ---
Author Organization [facility] Address [address] [place] [address] Phone Care Team Providers Care Core Paster Name Role Phone Marium Chamorro Unavailable Unavailable Procedures Procedure Date Eye Exam & Treatment Refraction Vision Svcs Frames Purchases Progressive Lens, Hi Index Tax - Medical Eye Exam & Treatment Refraction Advance Directives Directive Yes / No Effective Date File Name No Information Encounters Encounter Description Practice Location Reason(s) For Visit Diagnoses Date Provider Providers Copied on Encounter [facility], [address] [place] [address] [address], [place], [place], [address], tel:[phone] [facility] No Information 0-200 9 Ashtyn Causey. [address], [address], [place], [address], [place]. tel:[phone] [facility], [address] [place] [address] [address], [place], [place], [address], [place] tel:[phone] [facility] No Information [address] [facility] . [address] [facility], [address], [place], [place], [address], . tel:[phone] Referring Provider: Saran Muro, [address] [facility] [address], [place], [address]. tel:[phone] 2019Liss anand Provider: Hermila Rodriguez, [address] [facility], [place], [address]. tel:[phone] [facility], [address], [place], [place], [address], [place] tel:[phone] [facility] No Information 7200 7 Yoshikeara Hamiltonald. [address] [facility], [place], [place], [address], [place]. tel:[phone] Family History Family Member Type Diagnosis Age At Onset No Information Payers Payer name Insurance type Covered democrat ID Authoriza teshacaden(s) [facility] [id number] Social History Type Description Quantity Date Captured [...]
[2025-06-27 11:08] VITALS: BMI 23.7
--- NOTE | ~2025-07-07 | XR_ITS ---
EXAMINATION: XR fluoroscopy no charge DATE: 07/07/2025 12:07 INDICATION: Right L4-L5 transforaminal epidural steroid injection TECHNIQUE: 4 fluoroscopic images of the lumbar spine were obtained during procedure performed by Dr. Herrera. Radiologist was not present for the imaging or procedure. The amount of fluoroscopy time used during this procedure was 0.6 minutes. 2 mm radiation dose of 6.92 mGy. COMPARISON: None. FINDINGS: Lumbar dextroscoliosis with severe spondylosis. Spinal needle has been advanced to the posterior aspect of the right L4-L5 neural foramen with injected contrast demonstrating perineural extension with no evident intravascular or intrathecal contrast. IMPRESSION: 1. Fluoroscopy utilized during right L4-L5 transforaminal injection. See procedure note for further detail. Reviewed, dictated and finalized at location A. IMPRESSION: 1. Fluoroscopy utilized during right L4-L5 transforaminal injection. See proced ure note for further detail.
[2025-07-07 10:39] VITALS: BP 140/80; PULSE 56; RESP 15; TEMP 37.2; O2SAT 98
--- NOTE | 2025-07-07 11:09 | P.OP_ITS ---
Procedure Note - Detailed Date of Procedure 07/07/25 Pre-op Diagnosis Lumbar Radiculopathy Post-op Diagnosis Same Procedure Performed Right Lumbar Transforaminal Epidural Steroid Injection under Fluoroscopic Guidance and with Contrast Control at L4-5. Surgeon Abilio Herrera MD Anesthesia Local Description of Procedure INFORMED CONSENT: Risks, benefits and alternatives to the procedure were discussed in detail with the patient who expressed explicit understanding and consent to proceed. Patient was informed verbally and in written form regarding the risks associated with the procedure including the low risk of serious infection, bleeding/bruising, allergic reaction, nerve or organ injury, p aralysis, procedural site pain or discomfort, worsening pain and/or mobility, failure to treat and/or disfigurement. The patient expressed explicit understanding and consent to proceed. All materials required for the procedure were available prior to procedure start. Site and side was marked prior to procedure and confirmed in the presence of the patient. PROCEDURE IN DETAIL: The patient was brought to the procedural suite and placed in the prone position. Patient was made comfortable with use of pillows under the head/chest, hips and ankles. Skin overlying the injection site was prepared broadly with ChloraPrep applicator and draped in a sterile manner. Aseptic technique was employed throughout. The endplates of the vertebral body at the site of interest were aligned in the AP view. Ipsilateral oblique angulation was utilized to better visualize the neuroforamen of interest. Local anesthesia was established by infiltration with approximately 5 mL of 0.5% PF lidocaine via a 1-1/2 inch 27-gauge needle. A 22-gauge 5.0 inch Maximo (pencil point) spinal needle was advanced until the needle approached the 6 o'clock position on the pedicle just superior to the exiting nerve root. on the right at L4-5. Lateral view was utilized to confirm appropriate position of the needle tip within the superior and posterior portion of the respective foramen. In an AP view, 1 mL of Omnipaque 300 contrast medium was injected after negative aspiration for CSF, blood or other bodily fluid, showing appropriate neurogram without evidence of intravascular or intrathecal spread of contrast. Digital subtraction imaging was used with an additional 1ml of the same contrast medium to confirm absence of intravascular contrast spread. A 1mL solution containing 10 mg of dexamethasone was injected after negative repeat aspiration. Appropriate spread of the injectate was confirmed with washout of previously injected contrast. No parasthesias were elicited. Needle was removed completely intact without difficulty. Images were saved and documented in the patient chart. Patient's skin was cleaned and sterile bandage applied. The patient tolerated the procedure well. The patient was transported to the recovery area in stable condition where they were observed for an appropriate amount of time prior to discharge, without evidence of complication. The patient was instructed to avoid excessive activity for the next 48 hours, including climbing and frequent use of stairs. Showers only for 48 hours. They were instructed not to drive or operate heavy machinery for 24 hours. They are to monitor for severe headaches, fevers, chills, night sweats, erythema/swelling at the site or any other signs of infection, bleeding/bruising, bowel or bladder changes as well as new pain, weakness or numbness in the upper or lower extremity. Should they notice these changes, they are instructed to call our office immediately or report directly to the nearest Emergency Department if no answer or if after posted office hours. COMPLICATIONS: None COMMENTS: None CONTRAST WASTED: 28 mL Omnipaque 300. STEROID WASTED: 0 mg of dexamethasone. Complications No immediate complications Condition Stable Disposition Same day [facility] Billing Surgery - Charge Forward: Surgery Billing
--- NOTE | 2025-07-07 11:09 | WPDHPUPDATE1 ---
History and Physical Update Update Date/Time: 07/07/25 11:09 History and Physical has been reviewed, including an updated exam of the patient. There are NO changes in the patient's condition. Risks, benefits, and alternatives have been discussed and questions answered. Patient agrees to proceed with procedure.
[2025-07-07 11:42] VITALS: BP 175/104; PULSE 58; RESP 7; O2SAT 96
[2025-07-07] MEDS: LIDOCAINE 2% PF LOCAL INJ 5 ML VIAL 2 ML INFILTRATE (11:44)
[2025-07-07 11:45] VITALS: BP 160/96; PULSE 60; RESP 17; O2SAT 97
[2025-07-07] MEDS: dexAMETHasone SOD PHOS INJ 10 MG/ML 1 ML VIAL IM (11:45)
[2025-07-07] MEDS: LIDOCAINE 1% PF INJ 5 ML VIAL INFILTRATE (11:46)
[2025-07-07 11:50] VITALS: BP 153/96; PULSE 53; RESP 16; O2SAT 100
== END 2025-07-07 12:01 | disposition home or self-care (01) ==
PROVIDERS: PCP Family Medicine; Visit Provider Anesthesiology Pain Medicine
PROC: (CPT 64483; principal; 2025-07-07 11:10)
DX: M54.16 Radiculopathy, lumbar region (principal)
CPT/HCPCS: 64483; 99199